=== PATIENT | male | born 1960 | race Caucasian/White ===

== ENCOUNTER 2018-05-29 10:48 | Inpatient (IN) | payer MEDICAID ==
[~2018-05-29] VITALS: Ht 181.6 cm; Wt 131.9 kg
[~2018-05-29 10:48] MED LIST: AMLO5TAB16 PO; DOCU250C4 PO; FLO0.4C PO; LISI40TA4 PO; PANT20TA3 PO
[2018-05-29 11:19] LABS: BASOPHILS # (AUTO) 0.1 X10'3 (0-0.2); BASOPHILS % (AUTO) 0.6 % (0-1); EOSINOPHILS # (AUTO) 0.1 X10'3 (0-0.9); EOSINOPHILS % (AUTO) 0.4 % (0-6); HEMATOCRIT 45.1 % (42.0-52.0); HEMOGLOBIN 15.3 g/dl (14.0-17.9); LYMPHOCYTES # (AUTO) 1.8 X10'3 (1.1-4.8); LYMPHOCYTES % (AUTO) 12.8 % (21-51); MEAN CORPUSCULAR HEMOGLOBIN 33.2 PG (27.0-31.0); MEAN CORPUSCULAR HGB CONC 33.9 g/dL (33.0-36.5); MEAN CORPUSCULAR VOLUME 97.9 FL (78-98); MONOCYTES # (AUTO) 1.6 X10'3 (0-0.9); MONOCYTES % (AUTO) 11.4 % (2-12); NEUTROPHILS # (AUTO) 10.6 X10'3 (1.8-7.7); NEUTROPHILS % (AUTO) 74.8 % (42-75); PLATELET COUNT 346 X10'3 (140-440); RED BLOOD COUNT 4.61 X10'6 (4.70-6.10); RED CELL DISTRIBUTION WIDTH 13.7 % (11.5-14.5); WHITE BLOOD COUNT 14.2 X10'3 (4.5-11.0)
[2018-05-29 11:30] LABS: ALANINE AMINOTRANSFERASE 39 U/L (12-78); ALBUMIN 2.6 G/DL (3.4-5.0); ALBUMIN/GLOBULIN RATIO 0.5 (1.1-1.5); ALKALINE PHOSPHATASE 68 IU/L (46-116); ANION GAP 3 (8-16); ASPARTATE AMINO TRANSFERASE 35 U/L (10-37); BILIRUBIN,TOTAL 0.6 MG/DL (0.1-1.0); BLOOD UREA NITROGEN 13 MG/DL (7-18); CALCIUM 8.7 MG/DL (8.5-10.1); CHLORIDE 101 MMOL/L (99-107); GLUCOSE 117 MG/DL (70-104); LIPASE 153 U/L (73-393); POTASSIUM 3.5 MMOL/L (3.5-5.1); SODIUM 135 MMOL/L (135-145); TOTAL CARBON DIOXIDE 31.5 MMOL/L (24-32); TOTAL PROTEIN 7.7 G/DL (6.4-8.2); eGFR 77 ML/MIN
--- NOTE | 2018-05-29 11:30 | NUR ---
PT BROUGHT BACK TO ROOM 12 FROM THE LOBBY, GENERAL ASSESSMENT DONE AND PT MENTIONED THAT HE HAD BEEN FEELING DIZZY FOR THE PAST DAY OR SO, NO MENTION IF THIS DURING TRIAGE. EKG CALLED FOR AND COMPLETED @1124
[2018-05-29 11:34] LABS: INR 1.1 INR; PROTHROMBIN TIME 10.8 SECONDS (9.0-12.0)
--- NOTE | 2018-05-29 12:01 | NUR ---
IN TO GET UA FROM PT. PT STATES "IT DOES NOT FEEL LIKE THERE IS MUCH IN THERE" EDUCATED PT WE JUST NEED A SML AMT. PT STATES HE STILL CANT GO. WILL CONTINUE TO MONITOR
[2018-05-29 13:27] LABS: CLARITY,URINE SLIGHTLY CLOUDY (Clear); GLUCOSE, URINE NEGATIVE (Neg); KETONES,URINE TRACE mg/dl (Neg); LEUKOCYTE ESTERASE ,URINE NEGATIVE (Neg); NITRITES, URINE NEGATIVE (Neg); OCCULT BLOOD,URINE NEGATIVE (Neg); PH,URINE 6.5 (4.8-8.0); PROTEIN,URINE TRACE mg/dl (Neg); UROBILINOGEN,URINE >=8.0 E.U/dL (0.2-1.0)
[2018-05-29 13:40] LABS: UA COLLECTION TYPE CLN CATCH MIDSTREAM
[2018-05-29] MEDS ORDERED: piperacillin/tazo 3.375gm/50ml 50 ML IV STA (13:41)
[2018-05-29 13:46] LABS: COLOR,URINE DARK YELLOW (Yellow)
[2018-05-29 13:55] LABS: BACTERIA,URINE NONE SEEN /HPF (Neg); HYALINE CASTS 0-3 /LPF (NEGATIVE); MUCUS STRANDS MANY /LPF (Neg); RBC,URINE NONE SEEN /HPF (0-2); SQUAMOUS EPITHELIAL CELL,UR MANY /LPF (FEW); WBC,URINE 0-4 /HPF (0-4)
[2018-05-29] MEDS ORDERED: ketorolac tromethamine 15mg/ml inj. IV ONE (15:10)
[2018-05-29] MEDS ORDERED: ondansetron/PF 4mg/2ml inj IV PRN (15:15)
[2018-05-29] MEDS ORDERED: mag hydrox/Alum hydrox/simeth 30ml oral suspension PO PRN (15:15)
[2018-05-29] MEDS ORDERED: magnesium Cl slow-release 64mg tablet PO PRN (15:15)
[2018-05-29] MEDS ORDERED: magnesium 4gm in 100ml NS 100 ML IV PRN (15:15)
[2018-05-29] MEDS ORDERED: magnesium hydroxide 30ml (MOM) UD suspension PO PRN (15:15)
[2018-05-29] MEDS ORDERED: potassium Cl 20 mEq SR tablet PO PRN ×2 (15:15)
[2018-05-29] MEDS ORDERED: acetaminophen 325mg tablet PO PRN (15:15)
[2018-05-29] MEDS ORDERED: potassium Cl 40MEQ/NS 500ml 500 ML IV PRN ×2 (15:15)
[2018-05-29] MEDS ORDERED: magnesium 2GM in 50ml NS 50 ML IV PRN (15:15)
[2018-05-29] MEDS: piperacillin/tazo 3.375gm/50ml 50 ML IV SCH ×2 (15:28→20:43)
[2018-05-29] MEDS: normal saline 1000ml 1,000 ML IV SCH (15:30)
--- NOTE | 2018-05-29 20:20 | NUR ---
Patient in room ANK[facility] 344. I have received report from ER nurse, Essie and had the opportunity to ask questions and assume patient care.
[2018-05-29 20:25] VITALS: BP 115/66
[2018-05-29] MEDS: docusate sod 250mg capsule PO SCH (20:42)
[2018-05-29] MEDS: morphine 4 MG/ML inj SYRINge IV PRN (20:42)
[2018-05-29] MEDS ORDERED: amLODIPine 5mg tablet PO SCH (21:00)
[2018-05-30] VITALS: BP 97/62
[2018-05-30] MEDS: normal saline 1000ml 1,000 ML IV SCH ×3 (01:13→21:13)
[2018-05-30] MEDS: morphine 4 MG/ML inj SYRINge IV PRN ×3 (01:19→17:59)
[2018-05-30] MEDS: piperacillin/tazo 3.375gm/50ml 50 ML IV SCH ×4 (02:36→19:09)
[2018-05-30 04:38] LABS: BASOPHILS # (AUTO) 0.1 X10'3 (0-0.2); BASOPHILS % (AUTO) 1.1 % (0-1); EOSINOPHILS # (AUTO) 0.1 X10'3 (0-0.9); EOSINOPHILS % (AUTO) 1.4 % (0-6); HEMATOCRIT 39.3 % (42.0-52.0); HEMOGLOBIN 13.5 g/dl (14.0-17.9); LYMPHOCYTES # (AUTO) 1.8 X10'3 (1.1-4.8); LYMPHOCYTES % (AUTO) 21.1 % (21-51); MEAN CORPUSCULAR HEMOGLOBIN 33.8 PG (27.0-31.0); MEAN CORPUSCULAR HGB CONC 34.3 g/dL (33.0-36.5); MEAN CORPUSCULAR VOLUME 98.5 FL (78-98); MONOCYTES % (AUTO) 11.2 % (2-12); NEUTROPHILS # (AUTO) 5.6 X10'3 (1.8-7.7); NEUTROPHILS % (AUTO) 65.2 % (42-75); PLATELET COUNT 284 X10'3 (140-440); RED BLOOD COUNT 3.99 X10'6 (4.70-6.10); RED CELL DISTRIBUTION WIDTH 13.6 % (11.5-14.5); WHITE BLOOD COUNT 8.5 X10'3 (4.5-11.0)
[2018-05-30 04:51] LABS: ALANINE AMINOTRANSFERASE 34 U/L (12-78); ALBUMIN 2.2 G/DL (3.4-5.0); ALBUMIN/GLOBULIN RATIO 0.5 (1.1-1.5); ALKALINE PHOSPHATASE 53 IU/L (46-116); ANION GAP 3 (8-16); ASPARTATE AMINO TRANSFERASE 38 U/L (10-37); BILIRUBIN,TOTAL 0.6 MG/DL (0.1-1.0); BLOOD UREA NITROGEN 13 MG/DL (7-18); BUN/CREATININE RATIO 13.7 (5.4-32.0); CALCIUM 8.1 MG/DL (8.5-10.1); CHLORIDE 104 MMOL/L (99-107); CREATININE 0.95 MG/DL (0.60-1.10); GLUCOSE 91 MG/DL (70-104); MAGNESIUM 1.8 MG/DL (1.5-2.4); POTASSIUM 3.6 MMOL/L (3.5-5.1); SODIUM 139 MMOL/L (135-145); TOTAL CARBON DIOXIDE 31.8 MMOL/L (24-32); TOTAL PROTEIN 6.5 G/DL (6.4-8.2); eGFR 82 ML/MIN
--- NOTE | 2018-05-30 06:47 | NUR ---
Patient in room ANKITA 344. I have received report from BENTLEY Dinero and had the opportunity to ask questions and assume patient care.
[2018-05-30 08:00] VITALS: BP 130/79
[2018-05-30] MEDS: K and/or MAG REPLACEMENT MC SCH (08:00)
[2018-05-30] MEDS ORDERED: non-formulary drug (Pantoprazole Sodium (Protonix) 1 TAB) PO SCH (08:00)
[2018-05-30] MEDS ORDERED: lisinopril 20mg tablet PO SCH (08:00)
[2018-05-30] MEDS ORDERED: non-formulary drug (Lisinopril* 1 TABLET) PO SCH (08:00)
[2018-05-30] MEDS: tamsulosin 0.4mg capsule PO SCH (08:37)
[2018-05-30] MEDS: amLODIPine 5mg tablet PO SCH (08:37)
[2018-05-30] MEDS: docusate sod 250mg capsule PO SCH ×2 (08:37→19:09)
[2018-05-30] MEDS: pantoprazole 40mg Tablet.DR PO SCH (08:38)
[2018-05-30 11:00] VITALS: BP 112/63
[2018-05-30 18:00] VITALS: BP 131/62
--- NOTE | 2018-05-30 18:41 | NUR ---
Problems reprioritized. Patient report given, questions answered & plan of care reviewed with BENTLEY Mason.
--- NOTE | 2018-05-30 18:42 | NUR ---
Patient in room ANKITA 344. I have received report from Skylar jara and had the opportunity to ask questions and assume patient care.
[2018-05-31] VITALS: BP 132/91
[2018-05-31] MEDS: morphine 4 MG/ML inj SYRINge IV PRN ×2 (00:33→08:48)
[2018-05-31] MEDS: piperacillin/tazo 3.375gm/50ml 50 ML IV SCH ×4 (02:01→19:06)
[2018-05-31 05:09] LABS: BASOPHILS # (AUTO) 0.1 X10'3 (0-0.2); BASOPHILS % (AUTO) 1.2 % (0-1); EOSINOPHILS # (AUTO) 0.1 X10'3 (0-0.9); EOSINOPHILS % (AUTO) 1.5 % (0-6); HEMATOCRIT 38.7 % (42.0-52.0); HEMOGLOBIN 13.2 g/dl (14.0-17.9); LYMPHOCYTES # (AUTO) 1.8 X10'3 (1.1-4.8); LYMPHOCYTES % (AUTO) 22.6 % (21-51); MEAN CORPUSCULAR HEMOGLOBIN 33.5 PG (27.0-31.0); MEAN CORPUSCULAR HGB CONC 34.2 g/dL (33.0-36.5); MEAN CORPUSCULAR VOLUME 97.9 FL (78-98); MEAN PLATELET VOLUME 8.3 FL (7.4-10.4); MONOCYTES # (AUTO) 0.7 X10'3 (0-0.9); MONOCYTES % (AUTO) 8.4 % (2-12); NEUTROPHILS # (AUTO) 5.2 X10'3 (1.8-7.7); NEUTROPHILS % (AUTO) 66.3 % (42-75); PLATELET COUNT 287 X10'3 (140-440); RED BLOOD COUNT 3.95 X10'6 (4.70-6.10); RED CELL DISTRIBUTION WIDTH 13.7 % (11.5-14.5); WHITE BLOOD COUNT 7.9 X10'3 (4.5-11.0)
[2018-05-31 05:29] LABS: ALANINE AMINOTRANSFERASE 39 U/L (12-78); ALBUMIN 2.2 G/DL (3.4-5.0); ALBUMIN/GLOBULIN RATIO 0.5 (1.1-1.5); ALKALINE PHOSPHATASE 50 IU/L (46-116); ANION GAP 10 (8-16); ASPARTATE AMINO TRANSFERASE 37 U/L (10-37); BILIRUBIN,TOTAL 0.6 MG/DL (0.1-1.0); BLOOD UREA NITROGEN 8 MG/DL (7-18); BUN/CREATININE RATIO 9.5 (5.4-32.0); CALCIUM 7.9 MG/DL (8.5-10.1); CHLORIDE 103 MMOL/L (99-107); CREATININE 0.84 MG/DL (0.60-1.10); GLUCOSE 98 MG/DL (70-104); MAGNESIUM 1.7 MG/DL (1.5-2.4); POTASSIUM 3.6 MMOL/L (3.5-5.1); SODIUM 139 MMOL/L (135-145); TOTAL PROTEIN 6.4 G/DL (6.4-8.2); eGFR > 90 ML/MIN
--- NOTE | 2018-05-31 06:30 | NUR ---
Problems reprioritized. Patient report given, questions answered & plan of care reviewed with BENTLEY Lees.
--- NOTE | 2018-05-31 06:39 | NUR ---
Patient in room ANKITA 344. I have received report from BENTLEY Mason and had the opportunity to ask questions and assume patient care.
[2018-05-31 08:00] VITALS: BP 110/66
[2018-05-31] MEDS: K and/or MAG REPLACEMENT MC SCH (08:00)
[2018-05-31] MEDS: docusate sod 250mg capsule PO SCH ×2 (08:38→19:05)
[2018-05-31] MEDS: tamsulosin 0.4mg capsule PO SCH (08:38)
[2018-05-31] MEDS: amLODIPine 5mg tablet PO SCH (08:39)
[2018-05-31] MEDS: pantoprazole 40mg Tablet.DR PO SCH (08:39)
[2018-05-31 12:00] VITALS: BP 119/80
[2018-05-31] MEDS: HYDROcodone/acetaminophen 10/325mg tab PO PRN ×2 (15:14→23:00)
[2018-05-31] MEDS: normal saline 1000ml 1,000 ML IV SCH ×2 (15:15→19:06)
[2018-05-31 18:00] VITALS: BP 127/74
--- NOTE | 2018-05-31 18:33 | NUR ---
Problems reprioritized. Patient report given, questions answered & plan of care reviewed with BENTLEY Mason.
--- NOTE | 2018-05-31 18:34 | NUR ---
Patient in room ANKITA 344. I have received report from Skylar Lees and had the opportunity to ask questions and assume patient care.
[2018-06-01] VITALS: BP 124/76
[2018-06-01] MEDS: piperacillin/tazo 3.375gm/50ml 50 ML IV SCH ×2 (01:48→08:12)
[2018-06-01] MEDS: normal saline 1000ml 1,000 ML IV SCH ×2 (03:13→09:40)
--- NOTE | 2018-06-01 06:31 | NUR ---
Problems reprioritized. Patient report given, questions answered & plan of care reviewed with BENTLEY Lees.
--- NOTE | 2018-06-01 06:33 | NUR ---
Patient in room ANKITA 344. I have received report from BENTLEY Mason and had the opportunity to ask questions and assume patient care.
[2018-06-01 08:00] VITALS: BP 117/60
[2018-06-01] MEDS: K and/or MAG REPLACEMENT MC SCH (08:00)
[2018-06-01] MEDS: pantoprazole 40mg Tablet.DR PO SCH (08:12)
[2018-06-01] MEDS: amLODIPine 5mg tablet PO SCH (08:12)
[2018-06-01] MEDS: docusate sod 250mg capsule PO SCH (08:12)
[2018-06-01] MEDS: tamsulosin 0.4mg capsule PO SCH (08:12)
[2018-06-01] MEDS: HYDROcodone/acetaminophen 10/325mg tab PO PRN (08:19)
[2018-06-01 08:31] LABS: BASOPHILS # (AUTO) 0.1 X10'3 (0-0.2); EOSINOPHILS # (AUTO) 0.1 X10'3 (0-0.9); EOSINOPHILS % (AUTO) 1.5 % (0-6); HEMATOCRIT 40.4 % (42.0-52.0); HEMOGLOBIN 13.6 g/dl (14.0-17.9); LYMPHOCYTES # (AUTO) 1.6 X10'3 (1.1-4.8); LYMPHOCYTES % (AUTO) 20.8 % (21-51); MEAN CORPUSCULAR HEMOGLOBIN 33.2 PG (27.0-31.0); MEAN CORPUSCULAR HGB CONC 33.8 g/dL (33.0-36.5); MEAN CORPUSCULAR VOLUME 98.2 FL (78-98); MEAN PLATELET VOLUME 8.7 FL (7.4-10.4); MONOCYTES # (AUTO) 0.7 X10'3 (0-0.9); MONOCYTES % (AUTO) 9.2 % (2-12); NEUTROPHILS % (AUTO) 67.5 % (42-75); PLATELET COUNT 292 X10'3 (140-440); RED BLOOD COUNT 4.11 X10'6 (4.70-6.10); RED CELL DISTRIBUTION WIDTH 13.2 % (11.5-14.5); WHITE BLOOD COUNT 7.5 X10'3 (4.5-11.0)
[2018-06-01 08:40] LABS: ALANINE AMINOTRANSFERASE 36 U/L (12-78); ALBUMIN 2.4 G/DL (3.4-5.0); ALBUMIN/GLOBULIN RATIO 0.6 (1.1-1.5); ALKALINE PHOSPHATASE 51 IU/L (46-116); ANION GAP 7 (8-16); ASPARTATE AMINO TRANSFERASE 36 U/L (10-37); BILIRUBIN,TOTAL 0.5 MG/DL (0.1-1.0); BLOOD UREA NITROGEN 6 MG/DL (7-18); BUN/CREATININE RATIO 6.4 (5.4-32.0); CALCIUM 8.3 MG/DL (8.5-10.1); CHLORIDE 105 MMOL/L (99-107); CREATININE 0.94 MG/DL (0.60-1.10); GLUCOSE 96 MG/DL (70-104); MAGNESIUM 1.8 MG/DL (1.5-2.4); POTASSIUM 3.7 MMOL/L (3.5-5.1); SODIUM 140 MMOL/L (135-145); TOTAL CARBON DIOXIDE 28.2 MMOL/L (24-32); TOTAL PROTEIN 6.7 G/DL (6.4-8.2); eGFR 83 ML/MIN
[2018-06-01] MEDS ORDERED: METR-159 PO (12:06)
[2018-06-01] MEDS ORDERED: TRAM50TA2 PO (12:06)
[2018-06-01] MEDS ORDERED: LEVO750T21 PO (12:06)
--- NOTE | 2018-06-01 13:44 | NUR ---
Pt discharged to home with all belongings, in private vehicle. Discharge instructions and medications reviewed, new prescriptions called to [facility] on [address]. IV DC'd, cannula intact. Pt instructed to follow up with PCP in 1-2 weeks. Pt escorted to front lobby by PCT.
== END 2018-06-01 13:41 | disposition home or self-care (01) | DRG 720 ==
LOC: ER 10:48 → ED HOLD 15:13 → SUR 3N 20:15
PROVIDERS: ADMIT Internal Medicine; ATTEND Family Medicine
DX: A41.9 Sepsis, unspecified organism (principal); K57.80 Diverticulitis of intestine, part unspecified, with perforation and abscess without bleeding; G89.29 Other chronic pain; M54.9 Dorsalgia, unspecified; E66.9 Obesity, unspecified; F12.90 Cannabis use, unspecified, uncomplicated; I10 Essential (primary) hypertension; Z82.3 Family history of stroke; Z82.49 Family history of ischemic heart disease and other diseases of the circulatory system; Z68.41 Body mass index [BMI] 40.0-44.9, adult; Z71.3 Dietary counseling and surveillance
CPT/HCPCS: 36415; 74176; 80053; 81001; 83605; 83690; 83735; 85025; 85610; 87040; 87070; 93005; 96365; 96375; 99285; G0378; J1885; J2270; J2543; J7030

== ENCOUNTER 2018-06-16 19:26 | Inpatient (IN) | payer MEDICAID ==
[~2018-06-16] VITALS: Ht 180.3 cm; Wt 128.0 kg
[~2018-06-16 19:26] MED LIST changes: +METR-159 PO; +TRAM50TA2 PO
[2018-06-16 20:10] LABS: EOSINOPHILS # (AUTO) 0.1 X10'3 (0-0.9); LYMPHOCYTES # (AUTO) 2.5 X10'3 (1.1-4.8); MONOCYTES # (AUTO) 1.1 X10'3 (0-0.9)
[2018-06-16 20:11] LABS: BASOPHILS # (AUTO) 0.1 X10'3 (0-0.2); BASOPHILS % (AUTO) 1.3 % (0-1); HEMATOCRIT 47.9 % (42.0-52.0); HEMOGLOBIN 16.7 g/dl (14.0-17.9); LYMPHOCYTES % (AUTO) 22.9 % (21-51); MEAN CORPUSCULAR HEMOGLOBIN 33.6 PG (27.0-31.0); MEAN CORPUSCULAR HGB CONC 34.7 g/dL (33.0-36.5); MEAN CORPUSCULAR VOLUME 96.7 FL (78-98); MEAN PLATELET VOLUME 8.2 FL (7.4-10.4); MONOCYTES % (AUTO) 9.8 % (2-12); PLATELET COUNT 358 X10'3 (140-440); RED BLOOD COUNT 4.96 X10'6 (4.70-6.10); RED CELL DISTRIBUTION WIDTH 14.4 % (11.5-14.5); WHITE BLOOD COUNT 10.8 X10'3 (4.5-11.0)
[2018-06-16 20:20] LABS: ALANINE AMINOTRANSFERASE 30 U/L (12-78); ALBUMIN 3.1 G/DL (3.4-5.0); ALBUMIN/GLOBULIN RATIO 0.7 (1.1-1.5); ALKALINE PHOSPHATASE 79 IU/L (46-116); ANION GAP 9 (8-16); ASPARTATE AMINO TRANSFERASE 28 U/L (10-37); BILIRUBIN,TOTAL 0.5 MG/DL (0.1-1.0); BLOOD UREA NITROGEN 18 MG/DL (7-18); BUN/CREATININE RATIO 13.5 (5.4-32.0); CALCIUM 8.9 MG/DL (8.5-10.1); CHLORIDE 100 MMOL/L (99-107); CREATININE 1.33 MG/DL (0.60-1.10); GLUCOSE 182 MG/DL (70-104); POTASSIUM 3.9 MMOL/L (3.5-5.1); SODIUM 137 MMOL/L (135-145); TOTAL CARBON DIOXIDE 27.9 MMOL/L (24-32); TOTAL PROTEIN 7.6 G/DL (6.4-8.2); eGFR 56 ML/MIN
--- NOTE | 2018-06-16 21:45 | NUR ---
PT UNABLE TO VOID FOR UA AT THIS TIME.
[2018-06-16] MEDS ORDERED: normal saline 1000ML IV soln IV ONE (21:50)
[2018-06-16] MEDS: piperacillin/tazo 4.5gm/100ml 100 ML IV SCH (22:00)
[2018-06-16] MEDS ORDERED: morphine 4 MG/ML inj SYRINge IV ONE (22:35)
[2018-06-16 22:37] LABS: CLARITY,URINE CLEAR (Clear); COLOR,URINE YELLOW (Yellow); GLUCOSE, URINE NEGATIVE (Neg); KETONES,URINE NEGATIVE (Neg); LEUKOCYTE ESTERASE ,URINE NEGATIVE (Neg); NITRITES, URINE NEGATIVE (Neg); OCCULT BLOOD,URINE NEGATIVE (Neg); PROTEIN,URINE NEGATIVE (Neg)
[2018-06-16] MEDS ORDERED: DOCU-28 PO (22:43)
[2018-06-16] MEDS ORDERED: OMEP40CA37 PO (22:43)
[2018-06-16 22:44] LABS: UA COLLECTION TYPE CLN CATCH MIDSTREAM
[2018-06-16] MEDS ORDERED: morphine 10mg/ml inj. IV ONE (22:45)
[2018-06-16] MEDS: normal saline 1000ml 1,000 ML IV SCH (23:01)
[2018-06-16] MEDS ORDERED: HYDROcodone/acetaminophen 5mg/325mg tablet PO PRN (23:05)
[2018-06-16] MEDS ORDERED: acetaminophen 325mg tablet PO PRN ×2 (23:05)
[2018-06-16] MEDS ORDERED: magnesium 4gm in 100ml NS 100 ML IV PRN (23:05)
[2018-06-16] MEDS ORDERED: potassium Cl 20 mEq SR tablet PO PRN ×2 (23:05)
[2018-06-16] MEDS ORDERED: magnesium Cl slow-release 64mg tablet PO PRN (23:05)
[2018-06-16] MEDS ORDERED: ondansetron/PF 4mg/2ml inj IV PRN (23:05)
[2018-06-16] MEDS ORDERED: mag hydrox/Alum hydrox/simeth 30ml oral suspension PO PRN (23:05)
[2018-06-16] MEDS ORDERED: morphine 4 MG/ML inj SYRINge IV PRN ×2 (23:05)
[2018-06-16] MEDS ORDERED: potassium Cl 40MEQ/NS 500ml 500 ML IV PRN ×2 (23:05)
[2018-06-16] MEDS ORDERED: magnesium 2GM in 50ml NS 50 ML IV PRN (23:05)
[2018-06-17 00:30] VITALS: BP 146/95
--- NOTE | 2018-06-17 05:13 | NUR ---
RC'D VERBAL REPORT AT 0000 FROM IAN IN ED. PATIENT ARRIVED ON 4TH FLOOR VIA W/C AT 0030 AND AMBULATED INTO BATHROOM TO VOID VIA URINAL THEN TO BED. PIV INTACT AND PATENT, ZOSYN INFUSING AT TIME OF ADMIT. MEDICATED IN ED WITH MORPHINE AND PAIN LEVEL 6/10 AT THIS TIME. MEDICAL HX INFO RECALLED FROM MEDICAL RECORD PATIENT WAS HERE 2 WKS AGO. POSITIONS SELF AD RONALD, CALL LIGHT IN REACH
[2018-06-17 06:34] LABS: EOSINOPHILS # (AUTO) 0.1 X10'3 (0-0.9); HEMOGLOBIN 13.9 g/dl (14.0-17.9); MEAN PLATELET VOLUME 8.2 FL (7.4-10.4)
[2018-06-17 06:35] LABS: BASOPHILS # (AUTO) 0.1 X10'3 (0-0.2); BASOPHILS % (AUTO) 1.4 % (0-1); EOSINOPHILS % (AUTO) 1.6 % (0-6); LYMPHOCYTES # (AUTO) 2.6 X10'3 (1.1-4.8); LYMPHOCYTES % (AUTO) 31.3 % (21-51); MEAN CORPUSCULAR HEMOGLOBIN 32.9 PG (27.0-31.0); MEAN CORPUSCULAR VOLUME 96.6 FL (78-98); NEUTROPHILS # (AUTO) 4.5 X10'3 (1.8-7.7); NEUTROPHILS % (AUTO) 53.7 % (42-75); PLATELET COUNT 243 X10'3 (140-440); RED BLOOD COUNT 4.24 X10'6 (4.70-6.10); WHITE BLOOD COUNT 8.3 X10'3 (4.5-11.0)
[2018-06-17 06:39] LABS: ALBUMIN 2.4 G/DL (3.4-5.0); ANION GAP 7 (8-16); BLOOD UREA NITROGEN 14 MG/DL (7-18); BUN/CREATININE RATIO 15.1 (5.4-32.0); CALCIUM 7.9 MG/DL (8.5-10.1); CHLORIDE 108 MMOL/L (99-107); CREATININE 0.93 MG/DL (0.60-1.10); GLUCOSE 108 MG/DL (70-104); MAGNESIUM 1.7 MG/DL (1.5-2.4); SODIUM 140 MMOL/L (135-145); TOTAL CARBON DIOXIDE 24.7 MMOL/L (24-32); eGFR 84 ML/MIN
--- NOTE | 2018-06-17 06:41 | NUR ---
Problems reprioritized. Patient report given, questions answered & plan of care reviewed with Viviana HAGAN.
[2018-06-17 07:08] VITALS: BP 126/76
[2018-06-17] MEDS: piperacillin/tazo 4.5gm/100ml 100 ML IV SCH ×4 (07:29→22:58)
[2018-06-17] MEDS: tamsulosin 0.4mg capsule PO SCH (07:29)
[2018-06-17] MEDS: pantoprazole 40mg Tablet.DR PO SCH (07:29)
[2018-06-17] MEDS: K and/or MAG REPLACEMENT MC SCH (07:35)
[2018-06-17] MEDS: HYDROcodone/acetaminophen 10/325mg tab PO PRN ×3 (08:11→19:31)
[2018-06-17] MEDS: normal saline 1000ml 1,000 ML IV SCH (09:01)
[2018-06-17 10:00] VITALS: BP 105/62
[2018-06-17] MEDS: dextrose 5%-normal saline 1,000 ML IV SCH ×2 (15:51→22:59)
[2018-06-17 18:00] VITALS: BP 130/86
--- NOTE | 2018-06-17 18:53 | NUR ---
RECEIVED REPORT FROM JJ HAGAN AND ASSUMED PATIENT CARE
[2018-06-17] MEDS: lactobacillus rhamnosus 10,000 MMU CELLS/CAPSULE PO SCH (20:35)
[2018-06-17] MEDS: amLODIPine 5mg tablet PO SCH (20:35)
[2018-06-17 22:00] VITALS: BP 104/66
[2018-06-18] MEDS: HYDROcodone/acetaminophen 10/325mg tab PO PRN ×5 (00:41→20:30)
--- NOTE | 2018-06-18 06:22 | NUR ---
REPORT GIVEN TO JJ HAGAN
[2018-06-18 06:52] LABS: BASOPHILS % (AUTO) 0.2 % (0-1); EOSINOPHILS # (AUTO) 0.2 X10'3 (0-0.9); EOSINOPHILS % (AUTO) 2.2 % (0-6); HEMATOCRIT 39.1 % (42.0-52.0); HEMOGLOBIN 13.4 g/dl (14.0-17.9); LYMPHOCYTES # (AUTO) 2.3 X10'3 (1.1-4.8); LYMPHOCYTES % (AUTO) 33.3 % (21-51); MEAN CORPUSCULAR HEMOGLOBIN 33.1 PG (27.0-31.0); MEAN CORPUSCULAR HGB CONC 34.3 g/dL (33.0-36.5); MEAN CORPUSCULAR VOLUME 96.7 FL (78-98); MEAN PLATELET VOLUME 8.3 FL (7.4-10.4); MONOCYTES # (AUTO) 0.7 X10'3 (0-0.9); NEUTROPHILS # (AUTO) 3.6 X10'3 (1.8-7.7); NEUTROPHILS % (AUTO) 53.3 % (42-75); PLATELET COUNT 229 X10'3 (140-440); RED BLOOD COUNT 4.05 X10'6 (4.70-6.10); RED CELL DISTRIBUTION WIDTH 14.1 % (11.5-14.5); WHITE BLOOD COUNT 6.8 X10'3 (4.5-11.0)
[2018-06-18 06:56] LABS: ALBUMIN 2.5 G/DL (3.4-5.0); ANION GAP 5 (8-16); BLOOD UREA NITROGEN 8 MG/DL (7-18); BUN/CREATININE RATIO 8.2 (5.4-32.0); CALCIUM 8.3 MG/DL (8.5-10.1); CHLORIDE 107 MMOL/L (99-107); CREATININE 0.97 MG/DL (0.60-1.10); GLUCOSE 115 MG/DL (70-104); MAGNESIUM 1.7 MG/DL (1.5-2.4); POTASSIUM 3.9 MMOL/L (3.5-5.1); SODIUM 140 MMOL/L (135-145); TOTAL CARBON DIOXIDE 27.6 MMOL/L (24-32); eGFR 80 ML/MIN
[2018-06-18 07:01] VITALS: BP 97/65
[2018-06-18] MEDS: K and/or MAG REPLACEMENT MC SCH (07:34)
[2018-06-18] MEDS: piperacillin/tazo 4.5gm/100ml 100 ML IV SCH (07:34)
[2018-06-18] MEDS: tamsulosin 0.4mg capsule PO SCH (07:34)
[2018-06-18] MEDS: pantoprazole 40mg Tablet.DR PO SCH (07:34)
[2018-06-18] MEDS: lactobacillus rhamnosus 10,000 MMU CELLS/CAPSULE PO SCH ×2 (07:34→20:24)
[2018-06-18] MEDS: magnesium hydroxide 30ml (MOM) UD suspension PO PRN (09:24)
[2018-06-18] MEDS: dextrose 5%-normal saline 1,000 ML IV SCH (10:58)
[2018-06-18 11:14] VITALS: BP 133/94
[2018-06-18] MEDS: metroNIDAZOLE-Flagyl 500mg/NS 100 ML IV SCH (15:54)
[2018-06-18] MEDS: levoFLOXACIN-Levaquin 500mg/D5 100 ML IV SCH (15:55)
[2018-06-18] MEDS: NORMAL SALINE IV SCH (16:54)
[2018-06-18] MEDS: POTASSIUM CL IV SCH (16:54)
[2018-06-18] MEDS: DEXTROSE 5% IV SCH (16:54)
[2018-06-18 17:00] VITALS: BP 144/94
--- NOTE | 2018-06-18 18:34 | NUR ---
RECEIVED REPORT FROM JJ HAGAN AND ASSUMED PATIENT CARE
[2018-06-18] MEDS: heparin, porcine 5000 units/ml vial SQ SCH (20:24)
[2018-06-18] MEDS: amLODIPine 5mg tablet PO SCH (20:24)
[2018-06-18] MEDS: diatr meglu/diatrizoate 30ml oral sol.-(3 dose) bottle PO SCH (20:24)
[2018-06-18 22:00] VITALS: BP 145/97
[2018-06-19] MEDS: POTASSIUM CL IV SCH ×2 (00:07→10:50)
[2018-06-19] MEDS: metroNIDAZOLE-Flagyl 500mg/NS 100 ML IV SCH ×2 (00:07→07:37)
[2018-06-19] MEDS: DEXTROSE 5% IV SCH ×2 (00:07→10:50)
[2018-06-19] MEDS: NORMAL SALINE IV SCH ×2 (00:07→10:50)
[2018-06-19 06:00] VITALS: BP 126/83
--- NOTE | 2018-06-19 06:21 | NUR ---
REPORT GIVEN TO MARTHA HAGAN
--- NOTE | 2018-06-19 06:30 | NUR ---
Patient in room ORTHO 4013. I have received report from Eliana HAGAN and had the opportunity to ask questions and assume patient care.
[2018-06-19 06:38] LABS: ALBUMIN 2.8 G/DL (3.4-5.0); ANION GAP 6 (8-16); BLOOD UREA NITROGEN 6 MG/DL (7-18); BUN/CREATININE RATIO 6.3 (5.4-32.0); CALCIUM 8.5 MG/DL (8.5-10.1); CHLORIDE 105 MMOL/L (99-107); CREATININE 0.96 MG/DL (0.60-1.10); GLUCOSE 111 MG/DL (70-104); MAGNESIUM 1.7 MG/DL (1.5-2.4); POTASSIUM 3.9 MMOL/L (3.5-5.1); SODIUM 141 MMOL/L (135-145); TOTAL CARBON DIOXIDE 29.9 MMOL/L (24-32); eGFR 81 ML/MIN
[2018-06-19] MEDS: diatr meglu/diatrizoate 30ml oral sol.-(3 dose) bottle PO SCH ×2 (07:19→09:54)
[2018-06-19] MEDS: HYDROcodone/acetaminophen 10/325mg tab PO PRN ×2 (07:24→14:12)
[2018-06-19] MEDS: K and/or MAG REPLACEMENT MC SCH (08:00)
[2018-06-19] MEDS ORDERED: iohexol 300mg/ml 100ml inj. ONE (10:04)
[2018-06-19] MEDS: tamsulosin 0.4mg capsule PO SCH (11:07)
[2018-06-19] MEDS: lactobacillus rhamnosus 10,000 MMU CELLS/CAPSULE PO SCH (11:07)
[2018-06-19] MEDS: pantoprazole 40mg Tablet.DR PO SCH (11:07)
[2018-06-19] MEDS: heparin, porcine 5000 units/ml vial SQ SCH (11:08)
--- NOTE | 2018-06-19 11:32 | NUR ---
Student documentation: I have reviewed all interventions, assessments performed and documented by Eliana Muñiz. Student Medication Administration: For this medication-pass time frame, all medication were reviewed, dispensed, administered and documented per hospital policy by [facility].
--- NOTE | 2018-06-19 14:01 | NUR ---
PAGER ID: [phone] MESSAGE: Kaitlin ling ortho, # [phone], Mr. Jalloh in [id number] is anxious about results of CT and plan of care. please advise
[2018-06-19] MEDS ORDERED: bisacodyl 10mg suppository rectal RC STA (14:11)
--- NOTE | 2018-06-19 14:50 | NUR ---
PAGER ID: [phone] MESSAGE: Kaitlin on ortho, #[phone], Mr. Jalloh in rm 4013A, was able to have a BM, no suppository needed, pt requesting MOM, please advise, thank you
--- NOTE | 2018-06-19 14:54 | NUR ---
Discharge orders received, pt unable to obtain a ride home until 1900. Spoke with charge to arrange cab ride home. Called [facility] at 16:30, meds delivered bedside at 17:15. Cab called at 17:20. Pt was wheeled downstairs to be taken home at 17:40. Pt is alert and oriented. Reviewed discharge instructions with pt and follow up. Provided MD's office number and a soft foods diet educational packet. Pt verbalized understanding.
[2018-06-19] MEDS: levoFLOXACIN-Levaquin 500mg/D5 100 ML IV SCH (15:00)
[2018-06-19] MEDS ORDERED: METR-159 PO (15:01)
[2018-06-19] MEDS ORDERED: LEVO500T2 PO (15:01)
[2018-06-19] MEDS ORDERED: HYDR-3972 PO (15:16)
[2018-06-19] MEDS ORDERED: DOCU-28 PO (15:16)
--- NOTE | 2018-06-19 15:53 | NUR ---
Discharge orders from MD. Howe unable to obtain ride until 19:00
[2018-06-19] MEDS: magnesium hydroxide 30ml (MOM) UD suspension PO PRN (15:54)
== END 2018-06-19 17:40 | disposition home or self-care (01) | DRG 244 ==
LOC: ER 19:27 → ED HOLD 23:01 → EDBEDREQ 06-17 00:17 → ORTHO 4S 06-17 00:30
PROVIDERS: ADMIT Hospitalist; ATTEND Internal Medicine
PROC: BW211ZZ Computerized Tomography (CT Scan) of Abdomen and Pelvis using Low Osmolar Contrast (ICD-10-PCS; principal; 2018-06-19)
DX: K57.80 Diverticulitis of intestine, part unspecified, with perforation and abscess without bleeding (principal); N17.9 Acute kidney failure, unspecified; E86.0 Dehydration; F12.90 Cannabis use, unspecified, uncomplicated; I10 Essential (primary) hypertension; K59.00 Constipation, unspecified; G89.29 Other chronic pain; M54.9 Dorsalgia, unspecified; N40.0 Benign prostatic hyperplasia without lower urinary tract symptoms; Z80.9 Family history of malignant neoplasm, unspecified; Z82.3 Family history of stroke; Z82.49 Family history of ischemic heart disease and other diseases of the circulatory system; Z79.899 Other long term (current) drug therapy
CPT/HCPCS: 36415; 74176; 74177; 80048; 80053; 81003; 83605; 83735; 85025; 85610; 87040; 87070; 96374; 99285; G0378; J1644; J1956; J2270; J2543; J3480; J3490; J7030; J7042; Q9963; Q9967

== ENCOUNTER 2018-12-20 18:10 | Inpatient (IN) | payer MEDICAID ==
[2018-12-20] VITALS (9 sets, daily range): BP systolic 109–146; BP diastolic 52–89
[~2018-12-20] VITALS: Ht 180.3 cm; Wt 132.3 kg
[~2018-12-20 18:10] MED LIST changes: +DOCU-28 PO; -DOCU250C4 PO; +HYDR-3972 PO; -LISI40TA4 PO; -METR-159 PO; -TRAM50TA2 PO
--- NOTE | 2018-12-20 18:30 | NUR ---
PATIENT HAS PACER PADS ON AT THIS TIME, MONITORING AT THIS TIME
--- NOTE | 2018-12-20 18:36 | NUR ---
DR MERLOS AT BEDSIDE WITH PT
[2018-12-20 18:52] LABS: BASOPHILS # (AUTO) 0.1 X10'3 (0-0.2); BASOPHILS % (AUTO) 0.7 % (0-1); EOSINOPHILS % (AUTO) 0.3 % (0-6); HEMATOCRIT 41.4 % (42.0-52.0); HEMOGLOBIN 14.3 g/dl (14.0-17.9); LYMPHOCYTES # (AUTO) 1.1 X10'3 (1.1-4.8); LYMPHOCYTES % (AUTO) 9.7 % (21-51); MEAN CORPUSCULAR HEMOGLOBIN 34.6 PG (27.0-31.0); MEAN CORPUSCULAR HGB CONC 34.6 g/dL (33.0-36.5); MEAN CORPUSCULAR VOLUME 100.1 FL (78-98); MEAN PLATELET VOLUME 10.2 FL (7.4-10.4); MONOCYTES # (AUTO) 0.8 X10'3 (0-0.9); MONOCYTES % (AUTO) 7.1 % (2-12); NEUTROPHILS # (AUTO) 9.7 X10'3 (1.8-7.7); NEUTROPHILS % (AUTO) 82.2 % (42-75); PLATELET COUNT 189 X10'3 (140-440); RED BLOOD COUNT 4.13 X10'6 (4.70-6.10); RED CELL DISTRIBUTION WIDTH 13.3 % (11.5-14.5); WHITE BLOOD COUNT 11.8 X10'3 (4.5-11.0)
[2018-12-20 19:06] LABS: PARTIAL THROMBOPLASTIN TIME 26 SECONDS (22-32)
[2018-12-20 19:08] LABS: ALANINE AMINOTRANSFERASE 38 U/L (12-78); ALBUMIN 3.3 G/DL (3.4-5.0); ALBUMIN/GLOBULIN RATIO 0.8 (1.1-1.5); ALKALINE PHOSPHATASE 57 IU/L (46-116); ANION GAP 10 (8-16); ASPARTATE AMINO TRANSFERASE 16 U/L (10-37); BILIRUBIN,TOTAL 0.9 MG/DL (0.1-1.0); BLOOD UREA NITROGEN 14 MG/DL (7-18); BUN/CREATININE RATIO 13.9 (5.4-32.0); CALCIUM 8.5 MG/DL (8.5-10.1); CHLORIDE 102 MMOL/L (99-107); CREATININE 1.01 MG/DL (0.60-1.10); GLUCOSE 135 MG/DL (70-104); MAGNESIUM 2.1 MG/DL (1.5-2.4); PHOSPHORUS 2.7 MG/DL (2.3-4.5); POTASSIUM 3.8 MMOL/L (3.5-5.1); SODIUM 139 MMOL/L (135-145); TOTAL CARBON DIOXIDE 27.2 MMOL/L (24-32); TOTAL PROTEIN 7.4 G/DL (6.4-8.2); eGFR 76 ML/MIN
[2018-12-20] MEDS ORDERED: LISI40TA4 PO (19:26)
--- NOTE | 2018-12-20 19:28 | NUR ---
DR IVY AT BEDSIDE
[2018-12-20] MEDS ORDERED: LIDOcaine 1% 30ml preserv. free vial ONE (20:19)
[2018-12-20] MEDS ORDERED: ceFAZolin 1000mg inj ONE (20:19)
[2018-12-20] MEDS ORDERED: mag hydrox/Alum hydrox/simeth 30ml oral suspension PO PRN (20:20)
[2018-12-20] MEDS ORDERED: acetaminophen 325mg tablet PO PRN (20:20)
[2018-12-20] MEDS ORDERED: morphine 2 MG/ML inj. syringe IV PRN (20:20)
[2018-12-20] MEDS ORDERED: ondansetron/PF 4mg/2ml inj IV PRN ×3 (20:20→22:20)
[2018-12-20] MEDS ORDERED: magnesium hydroxide 30ml (MOM) UD suspension PO PRN (20:20)
[2018-12-20] MEDS ORDERED: fentaNYL/PF 50MCG/1 ML 2ML syringe ONE (20:53)
[2018-12-20] MEDS ORDERED: MIDAZolam 5mg/5ml vial ONE (20:53)
[2018-12-20] MEDS ORDERED: amLODIPine 5mg tablet PO SCH (21:00)
[2018-12-20] MEDS ORDERED: LIDOcaine 2% (20mg/ml) 5ml vial ONE (22:08)
[2018-12-20] MEDS ORDERED: propofol inj 20 ML IV ONE (22:08)
[2018-12-20 22:09] LABS: CLARITY,URINE CLEAR (Clear); COLOR,URINE YELLOW (Yellow); GLUCOSE, URINE NEGATIVE (Neg); KETONES,URINE 15 mg/dl (Neg); LEUKOCYTE ESTERASE ,URINE NEGATIVE (Neg); NITRITES, URINE NEGATIVE (Neg); OCCULT BLOOD,URINE NEGATIVE (Neg); PROTEIN,URINE TRACE mg/dl (Neg)
--- NOTE | 2018-12-20 22:09 | NUR ---
Received from OR via SURGICAL BED , accompanied by Anesthesiologist BHARATH and report given by Anesthesiolgist. VSS. DENIES PAIN. LEFT ANTERIOR CHEST DRESSING/OP SITE IS CDI AT THIS TIME. Addendum: 12/20/18 at 2221 by Gael Oliva RN, RN Amended: Links added.
[2018-12-20 22:12] LABS: UA COLLECTION TYPE NON-SPECIFIED
[2018-12-20 22:14] LABS: BACTERIA,URINE NONE SEEN /HPF (Neg); RBC,URINE NONE SEEN /HPF (0-2); SQUAMOUS EPITHELIAL CELL,UR FEW /LPF (FEW); WBC,URINE 0-4 /HPF (0-4)
[2018-12-20] MEDS ORDERED: HYDROcodone/acetaminophen 10/325mg tab PO PRN (22:15)
[2018-12-20] MEDS ORDERED: ringers solution, lacted 1,000 ML IV SCH (22:20)
[2018-12-20] MEDS ORDERED: morphine 4 MG/ML inj SYRINge IV PRN ×2 (22:20)
[2018-12-20] MEDS ORDERED: proCHLORperazine 10 MG/2 ml inj IV PRN (22:20)
[2018-12-20] MEDS ORDERED: meperidine/PF 25mg/ml syringe IV PRN ×2 (22:20)
[2018-12-20] MEDS ORDERED: meperidine/PF 25mg/ml syringe ONE (22:21)
[2018-12-20] MEDS: meperidine/PF 25mg/ml syringe IV PRN ×2 (22:24→22:38)
--- NOTE | 2018-12-20 22:30 | NUR ---
Patient in room PCU 3023. I have received report from Gael HAGAN, RR and had the opportunity to ask questions and assume patient care.
--- NOTE | 2018-12-20 22:49 | NUR ---
ALL CRITERIA FOR TRANSFER TO THE FLOOR HAS BEEN ACHIEVED. VSS. BED LOW, CALL LIGHT AND VS. SET IN PLACE. RN PRESENT TO ACCEPT CARE. PATIENT RESTING COMFORTABLY IN BED. BELONGINGS SENT WITH PATIENT. DRESSINGS CDI. BENTLEY GILLETTE PRESENT TO ACCEPT PATIENT. NO BELONGINGS WITH PATIENT. HOWEVER FAMILY MAY HAVE BELONGINGS. Addendum: 12/20/18 at 2300 by Gael Garcia - BENTLEY HAGAN Amended: Links added.
--- NOTE | 2018-12-20 22:50 | NUR ---
Pt received from RR via hospital bed in no acute distress. Pt oriented to room, bed, and surroundings. POC discussed w/Pt and family who are at the bedside. Telemetry placed, VSS, O2/NC at 3L/min. Full IV bag to L chest surgical wound to provide pressure. Tegaderm over site providing easy observation of wound status, CDI. NS infusing to R arm IV site as ordered. Sling to L arm in place. Elbow elevated f/comfort.
--- NOTE | 2018-12-20 23:00 | NUR ---
Problems reprioritized. Patient report given, questions answered & plan of care reviewed with Frances HAGAN.
[2018-12-20] MEDS: morphine 2 MG/ML inj. syringe IV PRN (23:41)
[2018-12-20] MEDS: normal saline 1000ml 1,000 ML IV SCH (23:43)
[2018-12-20] MEDS: ceFAZolin 1GM/D5W- ADD-VANTAGE 50 ML IV SCH (23:45)
[2018-12-21] VITALS (7 sets, daily range): BP systolic 114–136; BP diastolic 66–78
[2018-12-21] MEDS ORDERED: ceFAZolin 1GM/D5W- ADD-VANTAGE 50 ML IV SCH ×2
--- NOTE | 2018-12-21 04:17 | NUR ---
Patient in room PCU 3023. I have received report from BENTLEY Del Valle and had the opportunity to ask questions and assume patient care.
[2018-12-21 05:44] LABS: BASOPHILS # (AUTO) 0.1 X10'3 (0-0.2); BASOPHILS % (AUTO) 0.5 % (0-1); EOSINOPHILS % (AUTO) 0.1 % (0-6); HEMATOCRIT 37.8 % (42.0-52.0); HEMOGLOBIN 13.3 g/dl (14.0-17.9); LYMPHOCYTES # (AUTO) 1.7 X10'3 (1.1-4.8); LYMPHOCYTES % (AUTO) 15.8 % (21-51); MEAN CORPUSCULAR HGB CONC 35.2 g/dL (33.0-36.5); MEAN CORPUSCULAR VOLUME 99.4 FL (78-98); MEAN PLATELET VOLUME 9.8 FL (7.4-10.4); MONOCYTES % (AUTO) 9.4 % (2-12); NEUTROPHILS % (AUTO) 74.2 % (42-75); PLATELET COUNT 179 X10'3 (140-440); RED CELL DISTRIBUTION WIDTH 13.6 % (11.5-14.5); WHITE BLOOD COUNT 10.9 X10'3 (4.5-11.0)
--- NOTE | 2018-12-21 05:52 | NUR ---
[place]rientee documentation: I have reviewed all interventions, assessments performed and documented by Sheba HAGAN. [place] Medication Administration: For this medication-pass time frame, all medication were reviewed, dispensed, administered and documented per hospital policy by Sheba HAGAN.
[2018-12-21 06:03] LABS: ALANINE AMINOTRANSFERASE 29 U/L (12-78); ALBUMIN 2.9 G/DL (3.4-5.0); ALBUMIN/GLOBULIN RATIO 0.8 (1.1-1.5); ALKALINE PHOSPHATASE 52 IU/L (46-116); ANION GAP 8 (8-16); ASPARTATE AMINO TRANSFERASE 14 U/L (10-37); BILIRUBIN,TOTAL 0.7 MG/DL (0.1-1.0); BLOOD UREA NITROGEN 13 MG/DL (7-18); BUN/CREATININE RATIO 15.1 (5.4-32.0); CALCIUM 7.7 MG/DL (8.5-10.1); CHLORIDE 104 MMOL/L (99-107); CREATININE 0.86 MG/DL (0.60-1.10); GLUCOSE 114 MG/DL (70-104); POTASSIUM 3.9 MMOL/L (3.5-5.1); SODIUM 140 MMOL/L (135-145); TOTAL CARBON DIOXIDE 27.7 MMOL/L (24-32); TOTAL PROTEIN 6.7 G/DL (6.4-8.2); eGFR > 90 ML/MIN
[2018-12-21] MEDS: normal saline 1000ml 1,000 ML IV SCH (06:16)
--- NOTE | 2018-12-21 06:16 | NUR ---
Problems reprioritized. Patient report given, questions answered & plan of care reviewed with Sorin HAGAN.
--- NOTE | 2018-12-21 06:16 | NUR ---
Patient in room PCU 3023. I have received report from BENTLEY Daniels and had the opportunity to ask questions and assume patient care.
--- NOTE | 2018-12-21 06:24 | NUR ---
Problems reprioritized. Patient report given, questions answered & plan of care reviewed with BENTLEY Rowell.
[2018-12-21] MEDS ORDERED: pantoprazole 40mg Tablet.DR PO SCH (08:00)
[2018-12-21] MEDS ORDERED: tamsulosin 0.4mg capsule PO SCH (08:00)
[2018-12-21] MEDS ORDERED: lisinopril 20mg tablet PO SCH (08:00)
[2018-12-21] MEDS ORDERED: docusate sod 100mg capsule PO SCH (08:00)
[2018-12-21] MEDS: ceFAZolin 1GM/D5W- ADD-VANTAGE 50 ML IV SCH (08:25)
[2018-12-21] MEDS: morphine 2 MG/ML inj. syringe IV PRN (08:35)
[2018-12-21] MEDS ORDERED: pneumococcal 23-VAL P-sac vacc 25 mcg/0.5ml vial IMVAC ONE (10:00)
[2018-12-21] MEDS ORDERED: FLU VACC QS2019-20 36MOS UP/PF 60 MCG/0.5 ML SYRINGE IMVAC ONE (10:00)
[2018-12-21] MEDS ORDERED: HYDR-4353 PO (10:48)
--- NOTE | 2018-12-21 11:34 | NUR ---
PAGER ID: [phone] MESSAGE: [phone] Abhi Jalloh: [facility]? BENTLEY Rowell ext [phone]
--- NOTE | 2018-12-21 15:00 | NUR ---
Discharged per MD. MARTI and tele DC'd. Educated on meds, follow-up and pacemaker care.
== END 2018-12-21 14:05 | disposition home or self-care (01) | DRG 171 ==
LOC: ER 18:11 → PCU 3S 20:59
PROVIDERS: ADMIT Internal Medicine; ATTEND Family Medicine
PROC: 02H63JZ Insertion of Pacemaker Lead into Right Atrium, Percutaneous Approach (ICD-10-PCS; 2018-12-20)
PROC: 02HK3JZ Insertion of Pacemaker Lead into Right Ventricle, Percutaneous Approach (ICD-10-PCS; 2018-12-20)
PROC: 0JH606Z Insertion of Pacemaker, Dual Chamber into Chest Subcutaneous Tissue and Fascia, Open Approach (ICD-10-PCS; principal; 2018-12-20 20:55)
PROC: 3E02340 Introduction of Influenza Vaccine into Muscle, Percutaneous Approach (ICD-10-PCS; 2018-12-21)
PROC: 3E0234Z Introduction of Serum, Toxoid and Vaccine into Muscle, Percutaneous Approach (ICD-10-PCS; 2018-12-21)
DX: I44.2 Atrioventricular block, complete (principal); I11.0 Hypertensive heart disease with heart failure; I50.9 Heart failure, unspecified; E66.01 Morbid (severe) obesity due to excess calories; F12.90 Cannabis use, unspecified, uncomplicated; G89.4 Chronic pain syndrome; J93.9 Pneumothorax, unspecified; K21.9 Gastro-esophageal reflux disease without esophagitis; K52.9 Noninfective gastroenteritis and colitis, unspecified; M54.9 Dorsalgia, unspecified; K57.90 Diverticulosis of intestine, part unspecified, without perforation or abscess without bleeding; R00.1 Bradycardia, unspecified; N40.0 Benign prostatic hyperplasia without lower urinary tract symptoms; Z82.3 Family history of stroke; I25.2 Old myocardial infarction; Z82.49 Family history of ischemic heart disease and other diseases of the circulatory system; Z68.41 Body mass index [BMI] 40.0-44.9, adult; Z23 Encounter for immunization; Z88.8 Allergy status to other drugs, medicaments and biological substances
CPT/HCPCS: 36415; 71045; 76000; 80053; 81001; 83735; 83880; 84100; 84439; 84443; 84480; 84484; 85025; 85610; 85730; 86885; 86900; 86901; 87081; 93005; 93306; 99291; A4215; A4565; A6258; A6402; A7000; C1785; G0378; J0690; J2001; J2175; J2250; J2270; J2704; J3010; J7030; J7060; J7120; Q2037

== ENCOUNTER 2018-12-23 10:47 | Inpatient (IN) | payer MEDICAID ==
[~2018-12-23] VITALS: Ht 180.3 cm; Wt 135.0 kg
[~2018-12-23 10:47] MED LIST changes: -HYDR-3972 PO; +HYDR-4353 PO; +LISI40TA4 PO
--- NOTE | 2018-12-23 11:15 | NUR ---
LAB AT BEDSIDE PER ORDERS NOW
--- NOTE | 2018-12-23 11:27 | NUR ---
ITZEL INFORMED OF PT PAIN AND NAUSEA, NO MED ORDERS AT THIS TIME, WAITING FOR CT TEST AND RESULTS.
[2018-12-23] MEDS ORDERED: iohexol 300mg/ml 100ml inj. ONE (11:28)
[2018-12-23 11:37] LABS: BASOPHILS # (AUTO) 0.1 X10'3 (0-0.2); BASOPHILS % (AUTO) 0.7 % (0-1); EOSINOPHILS % (AUTO) 0.2 % (0-6); HEMATOCRIT 43.9 % (42.0-52.0); HEMOGLOBIN 15.3 g/dl (14.0-17.9); LYMPHOCYTES # (AUTO) 1.2 X10'3 (1.1-4.8); LYMPHOCYTES % (AUTO) 8.6 % (21-51); MEAN CORPUSCULAR HEMOGLOBIN 34.1 PG (27.0-31.0); MEAN CORPUSCULAR HGB CONC 34.9 g/dL (33.0-36.5); MEAN CORPUSCULAR VOLUME 97.6 FL (78-98); MEAN PLATELET VOLUME 8.8 FL (7.4-10.4); MONOCYTES # (AUTO) 1.2 X10'3 (0-0.9); MONOCYTES % (AUTO) 8.4 % (2-12); NEUTROPHILS # (AUTO) 11.6 X10'3 (1.8-7.7); NEUTROPHILS % (AUTO) 82.1 % (42-75); PLATELET COUNT 259 X10'3 (140-440); RED CELL DISTRIBUTION WIDTH 13.3 % (11.5-14.5); WHITE BLOOD COUNT 14.1 X10'3 (4.5-11.0)
--- NOTE | 2018-12-23 11:50 | NUR ---
BACK FROM CT INFORMED PA ITZEL
[2018-12-23 11:53] LABS: ALANINE AMINOTRANSFERASE 25 U/L (12-78); ALBUMIN/GLOBULIN RATIO 0.7 (1.1-1.5); ALKALINE PHOSPHATASE 56 IU/L (46-116); ANION GAP 6 (8-16); ASPARTATE AMINO TRANSFERASE 18 U/L (10-37); BILIRUBIN,TOTAL 0.9 MG/DL (0.1-1.0); BLOOD UREA NITROGEN 17 MG/DL (7-18); BUN/CREATININE RATIO 19.1 (5.4-32.0); CALCIUM 8.7 MG/DL (8.5-10.1); CHLORIDE 99 MMOL/L (99-107); CREATININE 0.89 MG/DL (0.60-1.10); GLUCOSE 126 MG/DL (70-104); SODIUM 138 MMOL/L (135-145); TOTAL CARBON DIOXIDE 32.6 MMOL/L (24-32); TOTAL PROTEIN 7.5 G/DL (6.4-8.2); eGFR 88 ML/MIN
[2018-12-23] MEDS ORDERED: morphine 2 MG/ML inj. syringe IV PRN (13:00)
[2018-12-23] MEDS ORDERED: magnesium hydroxide 30ml (MOM) UD suspension PO PRN (13:00)
[2018-12-23] MEDS ORDERED: ondansetron/PF 4mg/2ml inj IV PRN (13:00)
[2018-12-23] MEDS ORDERED: mag hydrox/Alum hydrox/simeth 30ml oral suspension PO PRN (13:00)
[2018-12-23] MEDS ORDERED: acetaminophen 325mg tablet PO PRN (13:00)
[2018-12-23] MEDS ORDERED: DOCU-20 PO (13:02)
[2018-12-23] MEDS ORDERED: piperacillin/tazo 3.375gm/50ml 50 ML IV ONE (13:25)
[2018-12-23] MEDS: normal saline 1000ml 1,000 ML IV SCH (13:31)
[2018-12-23] MEDS: morphine 2 MG/ML inj. syringe IV PRN ×2 (13:39→19:49)
--- NOTE | 2018-12-23 13:46 | NUR ---
DR KRAFT AT BEDSIDE FOR EVALUATION NOW
--- NOTE | 2018-12-23 13:51 | NUR ---
PT WAS NOT GETTING ANY OUTPUT FROM NG TUBE PLACED BY PURA HAGAN, ADVANCED NG TUBE AND GETTING GREEN/BROWN LIQUID OUTPUT 500 ML ON LOW CONTINUOUS SUCTION FOR A FEW MINUTES CHANGED TO LOW INTERMITTENT SUCTION PER DR KRAFT AFTER INITIAL OUTPUT.
--- NOTE | 2018-12-23 13:58 | NUR ---
DR SCHWARTZ AT BEDSIDE FOR EVALUATION FOR ADMISSION NOW
--- NOTE | 2018-12-23 14:30 | NUR ---
Received report from Jerrod HAGAN. Patient will be admitted to room 3023A.
--- NOTE | 2018-12-23 14:57 | NUR ---
Patient admitted to room 3023A. Patient hooked up to NS @ 100/hr per MD order, tele monitor applied, and NG hooked up to low intermittent. 2 RN skin check done. Oriented to room. VS: BP 145/84, HR 76, temp 98.9, RR 18, 0/10 pain. Will continue to monitor
[2018-12-23 15:00] VITALS: BP 145/84
[2018-12-23] MEDS ORDERED: BENZ0.5T43 PO (16:03)
[2018-12-23] MEDS: piperacillin/tazo 3.375gm/50ml 50 ML IV SCH (16:37)
--- NOTE | 2018-12-23 18:43 | NUR ---
Patient in room PCU 3023. I have received report from BENTLEY Chen and had the opportunity to ask questions and assume patient care.
--- NOTE | 2018-12-23 18:44 | NUR ---
Problems reprioritized. Patient report given, questions answered & plan of care reviewed with Raven HAGAN. Patient stable at shift of change
[2018-12-23 19:00] VITALS: BP 154/83
[2018-12-23] MEDS: docusate sod 100mg capsule PO SCH (19:48)
[2018-12-23] MEDS: amLODIPine 5mg tablet PO SCH (20:55)
[2018-12-23 21:01] VITALS: BP 137/84
[2018-12-23 23:00] VITALS: BP 130/68
[2018-12-24 02:00] VITALS: BP 121/70
[2018-12-24] MEDS: piperacillin/tazo 3.375gm/50ml 50 ML IV SCH ×4 (02:17→23:49)
[2018-12-24] MEDS: normal saline 1000ml 1,000 ML IV SCH ×3 (02:20→23:48)
--- NOTE | 2018-12-24 05:52 | NUR ---
pT HAS HAD 2 LIQUID STOOLS, BROWN IN COLOR. At 0530 patient had large liquid stool with small fragments of formed stool.
[2018-12-24 06:28] LABS: BASOPHILS # (AUTO) 0.1 X10'3 (0-0.2); BASOPHILS % (AUTO) 0.7 % (0-1); EOSINOPHILS # (AUTO) 0.1 X10'3 (0-0.9); EOSINOPHILS % (AUTO) 0.5 % (0-6); HEMATOCRIT 45.9 % (42.0-52.0); MEAN CORPUSCULAR HEMOGLOBIN 34.5 PG (27.0-31.0); MEAN CORPUSCULAR HGB CONC 34.9 g/dL (33.0-36.5); MEAN CORPUSCULAR VOLUME 98.9 FL (78-98); MEAN PLATELET VOLUME 8.9 FL (7.4-10.4); MONOCYTES # (AUTO) 1.4 X10'3 (0-0.9); MONOCYTES % (AUTO) 9.6 % (2-12); NEUTROPHILS # (AUTO) 10.8 X10'3 (1.8-7.7); NEUTROPHILS % (AUTO) 75.2 % (42-75); PLATELET COUNT 277 X10'3 (140-440); RED BLOOD COUNT 4.65 X10'6 (4.70-6.10); RED CELL DISTRIBUTION WIDTH 13.3 % (11.5-14.5); WHITE BLOOD COUNT 14.4 X10'3 (4.5-11.0)
[2018-12-24 06:30] VITALS: BP 135/77
--- NOTE | 2018-12-24 06:33 | NUR ---
Patient in room PCU 3023A. I have received report from Raven HAGAN and had the opportunity to ask questions and assume patient care.
--- NOTE | 2018-12-24 06:35 | NUR ---
Problems reprioritized. Patient report given, questions answered & plan of care reviewed with BENTLEY Chen .
[2018-12-24 06:38] LABS: ALBUMIN 3.3 G/DL (3.4-5.0); ANION GAP 13 (8-16); BLOOD UREA NITROGEN 17 MG/DL (7-18); BUN/CREATININE RATIO 14.9 (5.4-32.0); CALCIUM 9.1 MG/DL (8.5-10.1); CHLORIDE 98 MMOL/L (99-107); CREATININE 1.14 MG/DL (0.60-1.10); GLUCOSE 136 MG/DL (70-104); SODIUM 137 MMOL/L (135-145); TOTAL CARBON DIOXIDE 26.3 MMOL/L (24-32); eGFR 66 ML/MIN
[2018-12-24] MEDS: pantoprazole 40mg Tablet.DR PO SCH (07:28)
[2018-12-24] MEDS: docusate sod 100mg capsule PO SCH ×2 (07:28→20:02)
[2018-12-24] MEDS: tamsulosin 0.4mg capsule PO SCH (07:28)
[2018-12-24] MEDS: morphine 2 MG/ML inj. syringe IV PRN ×3 (07:29→20:08)
[2018-12-24] MEDS: lisinopril 20mg tablet PO SCH (07:29)
--- NOTE | 2018-12-24 08:00 | NUR ---
Paged Dr Coreas to ask if he wanted new NG placed, and gave update on bowel movements PAGER ID: [phone] MESSAGE: April lux [phone]. Leonides Montano 3023A. FYI followup from prior page, patient has had 2 large bowel movements, with consistency of both liquid and formed stool
[2018-12-24 11:00] VITALS: BP 108/81
[2018-12-24 18:00] VITALS: BP 156/81
--- NOTE | 2018-12-24 18:32 | NUR ---
Problems reprioritized. Patient report given, questions answered & plan of care reviewed with Raven HAGAN.
--- NOTE | 2018-12-24 19:21 | NUR ---
Patient in room PCU 3023. I have received report from BENTLEY Chen and had the opportunity to ask questions and assume patient care.
[2018-12-24 20:00] VITALS: BP 122/72
[2018-12-24] MEDS: lactobacillus rhamnosus 10,000 MMU CELLS/CAPSULE PO SCH (20:02)
[2018-12-24] MEDS: amLODIPine 5mg tablet PO SCH (20:02)
[2018-12-24 22:00] VITALS: BP 130/76
[2018-12-25 02:00] VITALS: BP 94/61
[2018-12-25] MEDS: normal saline 1000ml 1,000 ML IV SCH ×3 (04:59→23:21)
[2018-12-25 05:47] LABS: BASOPHILS % (AUTO) 0.4 % (0-1); EOSINOPHILS # (AUTO) 0.1 X10'3 (0-0.9); EOSINOPHILS % (AUTO) 0.9 % (0-6); HEMATOCRIT 43.3 % (42.0-52.0); HEMOGLOBIN 14.8 g/dl (14.0-17.9); LYMPHOCYTES % (AUTO) 22.6 % (21-51); MEAN CORPUSCULAR HEMOGLOBIN 34.4 PG (27.0-31.0); MEAN CORPUSCULAR HGB CONC 34.2 g/dL (33.0-36.5); MEAN CORPUSCULAR VOLUME 100.5 FL (78-98); MEAN PLATELET VOLUME 8.4 FL (7.4-10.4); MONOCYTES # (AUTO) 0.9 X10'3 (0-0.9); MONOCYTES % (AUTO) 9.7 % (2-12); NEUTROPHILS # (AUTO) 5.8 X10'3 (1.8-7.7); NEUTROPHILS % (AUTO) 66.4 % (42-75); PLATELET COUNT 227 X10'3 (140-440); RED BLOOD COUNT 4.31 X10'6 (4.70-6.10); RED CELL DISTRIBUTION WIDTH 13.4 % (11.5-14.5); WHITE BLOOD COUNT 8.8 X10'3 (4.5-11.0)
[2018-12-25 05:56] LABS: ANION GAP 8 (8-16); BLOOD UREA NITROGEN 12 MG/DL (7-18); BUN/CREATININE RATIO 10.5 (5.4-32.0); CHLORIDE 103 MMOL/L (99-107); CREATININE 1.14 MG/DL (0.60-1.10); GLUCOSE 97 MG/DL (70-104); POTASSIUM 3.4 MMOL/L (3.5-5.1); SODIUM 141 MMOL/L (135-145); TOTAL CARBON DIOXIDE 29.9 MMOL/L (24-32); eGFR 66 ML/MIN
--- NOTE | 2018-12-25 06:06 | NUR ---
Problems reprioritized. Patient report given, questions answered & plan of care reviewed with BENTLEY Lucero.
[2018-12-25 07:00] VITALS: BP 141/69
[2018-12-25] MEDS: pantoprazole 40mg Tablet.DR PO SCH (08:51)
[2018-12-25] MEDS: tamsulosin 0.4mg capsule PO SCH (08:52)
[2018-12-25] MEDS: piperacillin/tazo 3.375gm/50ml 50 ML IV SCH ×3 (08:52→23:36)
[2018-12-25] MEDS: lisinopril 20mg tablet PO SCH (08:52)
[2018-12-25] MEDS: lactobacillus rhamnosus 10,000 MMU CELLS/CAPSULE PO SCH ×2 (08:52→20:56)
[2018-12-25] MEDS: docusate sod 100mg capsule PO SCH ×2 (08:52→20:56)
--- NOTE | 2018-12-25 10:31 | NUR ---
Paged Dr. Coreas PAGER ID: [phone] MESSAGE: [phone] Yeimi. Patient would like [place] instead of Morphine for pain. Jazmine [phone]
[2018-12-25 11:00] VITALS: BP 143/86
[2018-12-25 15:00] VITALS: BP 121/68
--- NOTE | 2018-12-25 16:55 | NUR ---
PAGER ID: [phone] MESSAGE: Yeimi Leonardo. Patient would like to have a [place] instead of morphine. Please advise. Jazmine [phone]
--- NOTE | 2018-12-25 18:38 | NUR ---
Problems reprioritized. Patient report given, questions answered & plan of care reviewed with Yunior HAGAN.
--- NOTE | 2018-12-25 18:40 | NUR ---
Patient in room PCU 3023. I have received report from Jazmine HAGAN and Sully HAGAN and had the opportunity to ask questions and assume patient care.
--- NOTE | 2018-12-25 18:43 | NUR ---
Patient in room PCU 3023. I have received report from Jazmine HAGAN/Sully HAGAN and had the opportunity to ask questions and assume patient care.
[2018-12-25] MEDS: morphine 2 MG/ML inj. syringe IV PRN (18:53)
--- NOTE | 2018-12-25 19:11 | NUR ---
Page Sent to PAGER ID: [phone] MESSAGE: pt Abhi Jalloh in 23A is here for a large bowel obstruction potassium is at 3.4 not on protocol. May we start? Cachorro [phone]
[2018-12-25] MEDS ORDERED: potassium Cl 20 mEq SR tablet PO PRN (20:30)
[2018-12-25] MEDS ORDERED: potassium CL 10mEq/100ml bag 100 ML IV PRN (20:30)
[2018-12-25] MEDS ORDERED: magnesium Cl slow-release 64mg tablet PO PRN (20:30)
[2018-12-25] MEDS ORDERED: magnesium 4gm in 100ml NS 100 ML IV PRN (20:30)
[2018-12-25] MEDS: amLODIPine 5mg tablet PO SCH (20:56)
[2018-12-25 22:00] VITALS: BP 136/82
[2018-12-25] MEDS: potassium Cl 20 mEq SR tablet PO PRN (22:03)
[2018-12-26 02:00] VITALS: BP 132/78
[2018-12-26] MEDS: potassium Cl 20 mEq SR tablet PO PRN (02:12)
[2018-12-26] MEDS: HYDROcodone/acetaminophen 5mg/325mg tablet PO PRN ×2 (02:17→08:28)
[2018-12-26 06:00] VITALS: BP 128/79
[2018-12-26 06:00] LABS: BASOPHILS # (AUTO) 0.1 X10'3 (0-0.2); BASOPHILS % (AUTO) 0.6 % (0-1); EOSINOPHILS # (AUTO) 0.1 X10'3 (0-0.9); EOSINOPHILS % (AUTO) 1.3 % (0-6); HEMATOCRIT 40.7 % (42.0-52.0); HEMOGLOBIN 14.1 g/dl (14.0-17.9); LYMPHOCYTES # (AUTO) 1.8 X10'3 (1.1-4.8); LYMPHOCYTES % (AUTO) 21.6 % (21-51); MEAN CORPUSCULAR HEMOGLOBIN 34.3 PG (27.0-31.0); MEAN CORPUSCULAR HGB CONC 34.6 g/dL (33.0-36.5); MEAN PLATELET VOLUME 8.4 FL (7.4-10.4); MONOCYTES # (AUTO) 0.9 X10'3 (0-0.9); NEUTROPHILS # (AUTO) 5.4 X10'3 (1.8-7.7); NEUTROPHILS % (AUTO) 65.5 % (42-75); PLATELET COUNT 217 X10'3 (140-440); RED BLOOD COUNT 4.11 X10'6 (4.70-6.10); RED CELL DISTRIBUTION WIDTH 13.1 % (11.5-14.5); WHITE BLOOD COUNT 8.2 X10'3 (4.5-11.0)
--- NOTE | 2018-12-26 06:06 | NUR ---
Problems reprioritized. Patient report given, questions answered & plan of care reviewed with Zane HAGAN.
[2018-12-26 06:44] LABS: ALBUMIN 2.8 G/DL (3.4-5.0); ANION GAP 9 (8-16); BLOOD UREA NITROGEN 6 MG/DL (7-18); BUN/CREATININE RATIO 6.1 (5.4-32.0); CALCIUM 8.4 MG/DL (8.5-10.1); CHLORIDE 106 MMOL/L (99-107); CREATININE 0.99 MG/DL (0.60-1.10); GLUCOSE 103 MG/DL (70-104); SODIUM 142 MMOL/L (135-145); TOTAL CARBON DIOXIDE 26.7 MMOL/L (24-32); eGFR 78 ML/MIN
--- NOTE | 2018-12-26 06:50 | NUR ---
Patient in room PCU 3023. I have received report from Nelson HAGAN and had the opportunity to ask questions and assume patient care.
[2018-12-26] MEDS: piperacillin/tazo 3.375gm/50ml 50 ML IV SCH (07:16)
[2018-12-26] MEDS: tamsulosin 0.4mg capsule PO SCH (07:19)
[2018-12-26] MEDS: lactobacillus rhamnosus 10,000 MMU CELLS/CAPSULE PO SCH (07:19)
[2018-12-26] MEDS: docusate sod 100mg capsule PO SCH (07:19)
[2018-12-26] MEDS: pantoprazole 40mg Tablet.DR PO SCH (07:19)
[2018-12-26] MEDS: lisinopril 20mg tablet PO SCH (07:20)
[2018-12-26 11:00] VITALS: BP 129/71
[2018-12-26] MEDS ORDERED: METR-159 PO (11:10)
[2018-12-26] MEDS ORDERED: LEVO750T21 PO (11:10)
--- NOTE | 2018-12-26 13:28 | NUR ---
Patient is stable for discharge per md order, VSS, discharge instructions reviewed w/ patient and all questions answered, new medication prescription called in to [facility] per pt preference, tele monitor 47 removed and returned, PIV dc'ed and clean dy dressing in place, [facility], pt discharged w/ daughter in private vehicle at 1245, all belongings w/ pt at time of discharge.
== END 2018-12-26 13:18 | disposition home or self-care (01) | DRG 244 ==
LOC: ER 10:47 → ED HOLD 13:39 → PCU 3S 14:57
PROVIDERS: ADMIT Family Medicine; ATTEND Family Medicine
PROC: 0D9670Z Drainage of Stomach with Drainage Device, Via Natural or Artificial Opening (ICD-10-PCS; principal; 2018-12-23)
PROC: BW211ZZ Computerized Tomography (CT Scan) of Abdomen and Pelvis using Low Osmolar Contrast (ICD-10-PCS; 2018-12-23)
DX: K57.20 Diverticulitis of large intestine with perforation and abscess without bleeding (principal); K56.690 Other partial intestinal obstruction; I10 Essential (primary) hypertension; K21.9 Gastro-esophageal reflux disease without esophagitis; F12.90 Cannabis use, unspecified, uncomplicated; G89.29 Other chronic pain; E66.01 Morbid (severe) obesity due to excess calories; M54.9 Dorsalgia, unspecified; N40.0 Benign prostatic hyperplasia without lower urinary tract symptoms; Z82.3 Family history of stroke; Z82.49 Family history of ischemic heart disease and other diseases of the circulatory system; Z95.0 Presence of cardiac pacemaker; Z88.8 Allergy status to other drugs, medicaments and biological substances; Z68.41 Body mass index [BMI] 40.0-44.9, adult
CPT/HCPCS: 36415; 74177; 80048; 80053; 85025; 87081; 96374; 96375; 99285; G0378; J2270; J2405; J2543; J7030; Q9967

== ENCOUNTER 2019-01-09 14:51 | Emergency (ER) | payer MEDICAID ==
[~2019-01-09] VITALS: Ht 180.3 cm; Wt 126.0 kg
[~2019-01-09 14:51] MED LIST changes: +BENZ0.5T43 PO; +DOCU-20 PO; -DOCU-28 PO; -HYDR-4353 PO; +METR-159 PO
[2019-01-09 15:41] LABS: MEAN CORPUSCULAR HEMOGLOBIN 33.9 PG (27.0-31.0); MEAN CORPUSCULAR HGB CONC 34.9 g/dL (33.0-36.5); MONOCYTES # (AUTO) 0.9 X10'3 (0-0.9); MONOCYTES % (AUTO) 7.7 % (2-12); NEUTROPHILS % (AUTO) 70.6 % (42-75)
[2019-01-09 15:43] LABS: BASOPHILS # (AUTO) 0.1 X10'3 (0-0.2); BASOPHILS % (AUTO) 0.7 % (0-1); EOSINOPHILS % (AUTO) 0.3 % (0-6); HEMATOCRIT 43.2 % (42.0-52.0); HEMOGLOBIN 15.1 g/dl (14.0-17.9); LYMPHOCYTES # (AUTO) 2.4 X10'3 (1.1-4.8); LYMPHOCYTES % (AUTO) 20.7 % (21-51); MEAN PLATELET VOLUME 8.4 FL (7.4-10.4); NEUTROPHILS # (AUTO) 8.2 X10'3 (1.8-7.7); PLATELET COUNT 207 X10'3 (140-440); RED BLOOD COUNT 4.45 X10'6 (4.70-6.10); RED CELL DISTRIBUTION WIDTH 14.2 % (11.5-14.5); WHITE BLOOD COUNT 11.6 X10'3 (4.5-11.0)
[2019-01-09 15:52] LABS: PARTIAL THROMBOPLASTIN TIME 25 SECONDS (22-32)
[2019-01-09 16:04] LABS: ALANINE AMINOTRANSFERASE 33 U/L (12-78); ALBUMIN 3.1 G/DL (3.4-5.0); ALBUMIN/GLOBULIN RATIO 0.8 (1.1-1.5); ALKALINE PHOSPHATASE 67 IU/L (46-116); ANION GAP 7 (8-16); ASPARTATE AMINO TRANSFERASE 25 U/L (10-37); BILIRUBIN,TOTAL 0.3 MG/DL (0.1-1.0); BLOOD UREA NITROGEN 18 MG/DL (7-18); BUN/CREATININE RATIO 18.9 (5.4-32.0); CALCIUM 8.2 MG/DL (8.5-10.1); CHLORIDE 104 MMOL/L (99-107); CREATININE 0.95 MG/DL (0.60-1.10); GLUCOSE 156 MG/DL (70-104); POTASSIUM 3.7 MMOL/L (3.5-5.1); SODIUM 138 MMOL/L (135-145); TOTAL CARBON DIOXIDE 26.7 MMOL/L (24-32); eGFR 82 ML/MIN
[2019-01-09 18:34] LABS: GIANT PLATELET FEW; LARGE PLATELETS MODERATE; PLATELET ESTIMATE NORMAL
[2019-01-09 19:09] VITALS: BP 127/84
== END 2019-01-09 19:11 | disposition home or self-care (01) ==
LOC: ER 14:52
DX: R07.89 Other chest pain (principal); I10 Essential (primary) hypertension; G89.29 Other chronic pain; F12.90 Cannabis use, unspecified, uncomplicated; Z98.890 Other specified postprocedural states; Z56.0 Unemployment, unspecified; Z88.8 Allergy status to other drugs, medicaments and biological substances; Z79.899 Other long term (current) drug therapy
CPT/HCPCS: 36415; 71045; 80053; 84484; 85025; 85610; 85730; 93005; 99284

== ENCOUNTER 2019-02-23 11:55 | Emergency (ER) | payer MEDICAID ==
[~2019-02-23] VITALS: Ht 180.3 cm; Wt 150.0 kg
[~2019-02-23 11:55] MED LIST changes: -METR-159 PO
[2019-02-23] MEDS ORDERED: normal saline 1000ML IV soln IVB ONE (12:10)
[2019-02-23] MEDS ORDERED: magnesium citrate 296ml oral solution PO ONE (12:10)
[2019-02-23 12:29] LABS: BASOPHILS # (AUTO) 0.1 X10'3 (0-0.2); LYMPHOCYTES # (AUTO) 1.7 X10'3 (1.1-4.8); LYMPHOCYTES % (AUTO) 20.7 % (21-51); MONOCYTES # (AUTO) 0.6 X10'3 (0-0.9); NEUTROPHILS # (AUTO) 5.7 X10'3 (1.8-7.7)
[2019-02-23 12:30] LABS: EOSINOPHILS % (AUTO) 0.2 % (0-6); HEMATOCRIT 46.8 % (42.0-52.0); HEMOGLOBIN 16.4 g/dl (14.0-17.9); MEAN CORPUSCULAR HEMOGLOBIN 34.2 PG (27.0-31.0); MEAN CORPUSCULAR VOLUME 97.7 FL (78-98); MEAN PLATELET VOLUME 8.2 FL (7.4-10.4); MONOCYTES % (AUTO) 7.1 % (2-12); PLATELET COUNT 253 X10'3 (140-440); RED BLOOD COUNT 4.79 X10'6 (4.70-6.10); RED CELL DISTRIBUTION WIDTH 14.2 % (11.5-14.5)
[2019-02-23 12:41] LABS: ALANINE AMINOTRANSFERASE 54 U/L (12-78); ALBUMIN 3.7 G/DL (3.4-5.0); ALBUMIN/GLOBULIN RATIO 0.9 (1.1-1.5); ALKALINE PHOSPHATASE 57 IU/L (46-116); ANION GAP 9 (8-16); ASPARTATE AMINO TRANSFERASE 40 U/L (10-37); BILIRUBIN,TOTAL 0.6 MG/DL (0.1-1.0); BLOOD UREA NITROGEN 11 MG/DL (7-18); BUN/CREATININE RATIO 11.5 (5.4-32.0); CALCIUM 8.8 MG/DL (8.5-10.1); CHLORIDE 100 MMOL/L (99-107); CREATININE 0.96 MG/DL (0.60-1.10); GLUCOSE 135 MG/DL (70-104); LIPASE 94 U/L (73-393); SODIUM 136 MMOL/L (135-145); TOTAL CARBON DIOXIDE 26.8 MMOL/L (24-32); eGFR 81 ML/MIN
[2019-02-23 13:15] VITALS: BP 144/89
== END 2019-02-23 14:30 | disposition home or self-care (01) ==
LOC: ER 11:55
DX: K59.00 Constipation, unspecified (principal); I10 Essential (primary) hypertension; G89.29 Other chronic pain; F12.90 Cannabis use, unspecified, uncomplicated; Z98.890 Other specified postprocedural states; Z56.0 Unemployment, unspecified; Z88.8 Allergy status to other drugs, medicaments and biological substances; Z79.899 Other long term (current) drug therapy
CPT/HCPCS: 80053; 83605; 83690; 85025; 99284; J7030

== ENCOUNTER 2022-03-07 12:09 | Inpatient (IN) | payer MEDICAID ==
[~2022-03-07] VITALS: Ht 180.3 cm; Wt 122.0 kg
[~2022-03-07 12:09] MED LIST changes: -DOCU-20 PO; +DOCU-348 PO; +LISI40TA13 PO; -LISI40TA4 PO; +PANT20TA18 PO; -PANT20TA3 PO
[2022-03-07] MEDS ORDERED: CefTRIAXone 2gm/D5W 50ml BAG 50 ML IV ONE (12:40)
[2022-03-07] MEDS ORDERED: normal saline 1000ML IV soln IVB ONE (12:40)
[2022-03-07] MEDS ORDERED: ipratropium/albuterol 3ml nebule NEB ONE (12:40)
[2022-03-07] MEDS ORDERED: methylPREDNISolone sod succ 125mg/2ml vial IV ONE (12:40)
[2022-03-07 13:27] LABS: BASOPHILS % (AUTO) 0.3 % (0-1); EOSINOPHILS % (AUTO) 0 % (0-6); HEMATOCRIT 41.4 % (42.0-52.0); HEMOGLOBIN 14.1 g/dl (14.0-17.9); LYMPHOCYTES # (AUTO) 2.4 X10'3 (1.1-4.8); LYMPHOCYTES % (AUTO) 14.2 % (21-51); MEAN CORPUSCULAR HEMOGLOBIN 34.7 PG (27.0-31.0); MEAN CORPUSCULAR HGB CONC 34.1 g/dL (33.0-36.5); MEAN CORPUSCULAR VOLUME 101.8 FL (78-98); MEAN PLATELET VOLUME 8.3 FL (7.4-10.4); MONOCYTES # (AUTO) 1.4 X10'3 (0-0.9); MONOCYTES % (AUTO) 8.3 % (2-12); NEUTROPHILS # (AUTO) 13.2 X10'3 (1.8-7.7); NEUTROPHILS % (AUTO) 77.2 % (42-75); PLATELET COUNT 325 X10'3 (140-440); RED BLOOD COUNT 4.06 X10'6 (4.70-6.10); RED CELL DISTRIBUTION WIDTH 13.4 % (11.5-14.5); WHITE BLOOD COUNT 17.1 X10'3 (4.5-11.0)
[2022-03-07 13:28] LABS: ABG BASE EXCESS 3.8 mmol/L (-2.0-2.0); ABG HCO3 33.6 mmol/L (22.0-26.0); ABG PCO2 (T) 77.4 mmHg (35.0-48.0); ABG PO2 (T) 119.5 mmHg (75.0-100.0); ALLEN'S TEST POSITIVE; FCOHb 1.1 % (0.0-3.9); FLOW 4 L/min; FMetHb 0.2 % (0.0-1.5); FO2Hb 96.7 % (94-97); PATIENT TEMPERATURE 37.3; TOTAL HEMOGLOBIN 14.6 G/dl (14.0-17.9)
[2022-03-07 13:51] LABS: ALANINE AMINOTRANSFERASE 33 U/L (12-78); ALBUMIN 2.2 G/DL (3.4-5.0); ALBUMIN/GLOBULIN RATIO 0.4 (1.1-1.5); ALKALINE PHOSPHATASE 65 IU/L (46-116); ANION GAP 7 (8-16); ASPARTATE AMINO TRANSFERASE 39 U/L (10-37); BILIRUBIN,TOTAL 0.8 MG/DL (0.1-1.0); BLOOD UREA NITROGEN 17 MG/DL (7-18); BUN/CREATININE RATIO 16.8 (5.4-32.0); CALCIUM 7.5 MG/DL (8.5-10.1); CHLORIDE 95 MMOL/L (99-107); CREATININE 1.01 MG/DL (0.60-1.10); GLUCOSE 150 MG/DL (70-104); POTASSIUM 3.6 MMOL/L (3.5-5.1); SODIUM 135 MMOL/L (135-145); TOTAL CARBON DIOXIDE 33.4 MMOL/L (24-32); TOTAL PROTEIN 7.4 G/DL (6.4-8.2); eGFR 75 ML/MIN
[2022-03-07 16:03] LABS: ABG BASE EXCESS 5.1 mmol/L (-2.0-2.0); ABG HCO3 32.7 mmol/L (22.0-26.0); ABG OXYGEN SATURATION 93.9 % (94-97); ABG PCO2 (T) 60.8 mmHg (35.0-48.0); ABG PO2 (T) 70.7 mmHg (75.0-100.0); ALLEN'S TEST POSITIVE; FCOHb 1.2 % (0.0-3.9); FMetHb 0.1 % (0.0-1.5); FO2Hb 92.7 % (94-97); TOTAL HEMOGLOBIN 14.8 G/dl (14.0-17.9)
--- NOTE | 2022-03-07 16:09 | NUR ---
Critical abg results reported to DR. Allen and BENTLEY Nam. decrease fio2 to 28%. Addendum: 03/07/22 at 1609 by Faustina Lenz RT Amended: Links added.
[2022-03-07] MEDS ORDERED: INDLA60C PO (16:31)
[2022-03-07] MEDS ORDERED: IBUP-1984 PO (16:32)
[2022-03-07] MEDS ORDERED: ACET-1008 PO (16:33)
[2022-03-07] MEDS ORDERED: ASPI-10 PO (16:33)
[2022-03-07] MEDS ORDERED: ondansetron/PF 4mg/2ml inj IV PRN (17:05)
[2022-03-07] MEDS ORDERED: potassium Cl 20 mEq SR tablet PO PRN (17:05)
[2022-03-07] MEDS ORDERED: potassium Cl 40MEQ/1/2NS 520ml 520 ML IV PRN (17:05)
[2022-03-07] MEDS ORDERED: acetaminophen 325mg tablet PO PRN (17:05)
[2022-03-07] MEDS ORDERED: magnesium hydroxide 30ml (MOM) UD suspension PO PRN (17:05)
[2022-03-07] MEDS ORDERED: magnesium 4gm in 100ml NS 100 ML IV PRN (17:05)
[2022-03-07] MEDS ORDERED: mag hydrox/Alum hydrox/simeth 30ml oral suspension PO PRN (17:05)
[2022-03-07] MEDS: ipratropium/albuterol 3ml nebule NEB SCH ×2 (20:18→23:12)
[2022-03-07] MEDS: docusate sod 100mg capsule PO SCH (20:35)
[2022-03-07] MEDS: oseltamivir phos 75mg capsule PO SCH (20:35)
[2022-03-07] MEDS: enoxaparin 30mg/0.3ml syringe SQ SCH (20:36)
[2022-03-07] MEDS: K and/or MAG REPLACEMENT MC SCH (20:37)
[2022-03-08] MEDS: ipratropium/albuterol 3ml nebule NEB SCH ×6 (02:43→23:03)
[2022-03-08 03:35] LABS: BASOPHILS % (AUTO) 0.2 % (0-1); EOSINOPHILS % (AUTO) 0 % (0-6); HEMATOCRIT 35.3 % (42.0-52.0); HEMOGLOBIN 12.1 g/dl (14.0-17.9); LYMPHOCYTES % (AUTO) 10.4 % (21-51); MEAN CORPUSCULAR HEMOGLOBIN 34.9 PG (27.0-31.0); MEAN CORPUSCULAR HGB CONC 34.2 g/dL (33.0-36.5); MEAN CORPUSCULAR VOLUME 101.9 FL (78-98); MEAN PLATELET VOLUME 8.8 FL (7.4-10.4); MONOCYTES # (AUTO) 0.2 X10'3 (0-0.9); MONOCYTES % (AUTO) 2.5 % (2-12); NEUTROPHILS # (AUTO) 8.4 X10'3 (1.8-7.7); NEUTROPHILS % (AUTO) 86.9 % (42-75); PLATELET COUNT 229 X10'3 (140-440); RED BLOOD COUNT 3.46 X10'6 (4.70-6.10); RED CELL DISTRIBUTION WIDTH 13.4 % (11.5-14.5); WHITE BLOOD COUNT 9.6 X10'3 (4.5-11.0)
[2022-03-08 03:48] LABS: ALBUMIN 1.9 G/DL (3.4-5.0); ANION GAP 7 (8-16); BLOOD UREA NITROGEN 29 MG/DL (7-18); BUN/CREATININE RATIO 21.5 (5.4-32.0); CALCIUM 7.1 MG/DL (8.5-10.1); CHLORIDE 97 MMOL/L (99-107); CREATININE 1.35 MG/DL (0.60-1.10); GLUCOSE 189 MG/DL (70-104); MAGNESIUM 1.2 MG/DL (1.5-2.4); POTASSIUM 3.2 MMOL/L (3.5-5.1); SODIUM 136 MMOL/L (135-145); TOTAL CARBON DIOXIDE 32.2 MMOL/L (24-32); eGFR 54 ML/MIN
--- NOTE | 2022-03-08 05:11 | NUR ---
DR. BEDOYA PAGED FOR NEW HYPOTENSION. MD STARTED PT ON MAINTENANCE FLUIDS AT 70ML/HR
[2022-03-08] MEDS ORDERED: normal saline 1000ml 1,000 ML IV SCH (05:15)
--- NOTE | 2022-03-08 06:10 | NUR ---
Patient in room PCU 3022. I have received report from Jessica HAGAN and had the opportunity to ask questions and assume patient care.
[2022-03-08] MEDS: K and/or MAG REPLACEMENT MC SCH ×2 (08:00→20:00)
[2022-03-08] MEDS: docusate sod 100mg capsule PO SCH ×3 (08:00→20:32)
[2022-03-08] MEDS: levoFLOXACIN-Levaquin 500mg/D5 100 ML IV SCH (08:46)
[2022-03-08] MEDS: potassium Cl 20 mEq SR tablet PO PRN ×2 (08:46→13:50)
[2022-03-08] MEDS: enoxaparin 30mg/0.3ml syringe SQ SCH ×2 (08:46→20:33)
[2022-03-08] MEDS: oseltamivir phos 75mg capsule PO SCH ×2 (08:47→20:32)
[2022-03-08] MEDS: magnesium Cl slow-release 64mg tablet PO PRN (08:47)
[2022-03-08 09:04] VITALS: BP 124/69
[2022-03-08] MEDS: predniSONE 20 mg tablet PO SCH (09:11)
[2022-03-08] MEDS: HYDROcodone/acetaminophen 5mg/325mg tablet PO PRN ×2 (11:35→20:35)
[2022-03-08 12:01] VITALS: BP 126/71
[2022-03-08 16:03] VITALS: BP 137/74
[2022-03-08 18:00] VITALS: BP 106/66
[2022-03-08 22:00] VITALS: BP 122/66
[2022-03-09] MEDS: ipratropium/albuterol 3ml nebule NEB SCH ×5 (03:00→20:14)
[2022-03-09 05:57] VITALS: BP 127/72
--- NOTE | 2022-03-09 06:15 | NUR ---
Patient in room PCU 3022. I have received report from Tito HAGAN and had the opportunity to ask questions and assume patient care.
[2022-03-09 06:21] LABS: BASOPHILS # (AUTO) 0.1 X10'3 (0-0.2); BASOPHILS % (AUTO) 0.8 % (0-1); EOSINOPHILS % (AUTO) 0 % (0-6); HEMATOCRIT 37.4 % (42.0-52.0); HEMOGLOBIN 12.9 g/dl (14.0-17.9); LYMPHOCYTES # (AUTO) 1.5 X10'3 (1.1-4.8); LYMPHOCYTES % (AUTO) 15.5 % (21-51); MEAN CORPUSCULAR HEMOGLOBIN 35.3 PG (27.0-31.0); MEAN CORPUSCULAR HGB CONC 34.5 g/dL (33.0-36.5); MEAN CORPUSCULAR VOLUME 102.2 FL (78-98); MEAN PLATELET VOLUME 8.3 FL (7.4-10.4); MONOCYTES # (AUTO) 0.7 X10'3 (0-0.9); MONOCYTES % (AUTO) 7.2 % (2-12); NEUTROPHILS # (AUTO) 7.3 X10'3 (1.8-7.7); NEUTROPHILS % (AUTO) 76.5 % (42-75); PLATELET COUNT 220 X10'3 (140-440); RED BLOOD COUNT 3.66 X10'6 (4.70-6.10); RED CELL DISTRIBUTION WIDTH 13.7 % (11.5-14.5); WHITE BLOOD COUNT 9.5 X10'3 (4.5-11.0)
[2022-03-09 06:52] LABS: ALBUMIN 2.1 G/DL (3.4-5.0); ANION GAP 6 (8-16); BLOOD UREA NITROGEN 30 MG/DL (7-18); BUN/CREATININE RATIO 30.9 (5.4-32.0); CALCIUM 8.1 MG/DL (8.5-10.1); CHLORIDE 103 MMOL/L (99-107); CREATININE 0.97 MG/DL (0.60-1.10); GLUCOSE 127 MG/DL (70-104); MAGNESIUM 1.6 MG/DL (1.5-2.4); POTASSIUM 3.8 MMOL/L (3.5-5.1); SODIUM 141 MMOL/L (135-145); TOTAL CARBON DIOXIDE 32.1 MMOL/L (24-32); eGFR 79 ML/MIN
[2022-03-09 07:21] VITALS: BP 110/58
[2022-03-09] MEDS: docusate sod 100mg capsule PO SCH ×2 (08:00→20:29)
[2022-03-09] MEDS: K and/or MAG REPLACEMENT MC SCH ×2 (08:00→20:00)
[2022-03-09] MEDS: enoxaparin 30mg/0.3ml syringe SQ SCH ×2 (08:30→20:30)
[2022-03-09] MEDS: levoFLOXACIN-Levaquin 500mg/D5 100 ML IV SCH (08:30)
[2022-03-09] MEDS: predniSONE 20 mg tablet PO SCH (08:31)
[2022-03-09] MEDS: oseltamivir phos 75mg capsule PO SCH ×2 (08:33→20:29)
[2022-03-09] MEDS: HYDROcodone/acetaminophen 5mg/325mg tablet PO PRN ×2 (08:33→20:31)
[2022-03-09] MEDS ORDERED: benzonatate 100mg capsule PO PRN (08:50)
[2022-03-09 12:49] VITALS: BP 140/76
[2022-03-09 18:00] VITALS: BP 139/71
--- NOTE | 2022-03-09 18:14 | NUR ---
Problems reprioritized. Patient report given, questions answered & plan of care reviewed with Tito HAGAN, patient stable at transfer of care.
[2022-03-10] MEDS: ipratropium/albuterol 3ml nebule NEB SCH ×4 (00:01→11:02)
[2022-03-10 02:00] VITALS: BP 122/54
[2022-03-10 06:00] VITALS: BP 140/71
[2022-03-10 06:36] LABS: BASOPHILS # (AUTO) 0.1 X10'3 (0-0.2); BASOPHILS % (AUTO) 0.6 % (0-1); EOSINOPHILS % (AUTO) 0.2 % (0-6); HEMATOCRIT 36.7 % (42.0-52.0); HEMOGLOBIN 12.6 g/dl (14.0-17.9); LYMPHOCYTES # (AUTO) 2.1 X10'3 (1.1-4.8); LYMPHOCYTES % (AUTO) 26.6 % (21-51); MEAN CORPUSCULAR HEMOGLOBIN 34.8 PG (27.0-31.0); MEAN CORPUSCULAR HGB CONC 34.2 g/dL (33.0-36.5); MEAN CORPUSCULAR VOLUME 101.6 FL (78-98); MEAN PLATELET VOLUME 7.9 FL (7.4-10.4); MONOCYTES # (AUTO) 0.8 X10'3 (0-0.9); MONOCYTES % (AUTO) 10.3 % (2-12); NEUTROPHILS # (AUTO) 4.8 X10'3 (1.8-7.7); NEUTROPHILS % (AUTO) 62.3 % (42-75); PLATELET COUNT 206 X10'3 (140-440); RED BLOOD COUNT 3.61 X10'6 (4.70-6.10); RED CELL DISTRIBUTION WIDTH 13.4 % (11.5-14.5); WHITE BLOOD COUNT 7.8 X10'3 (4.5-11.0)
--- NOTE | 2022-03-10 06:40 | NUR ---
Patient in room PCU 3022. I have received report from BENTLEY PUGA, and had the opportunity to ask questions and assume patient care.
[2022-03-10 06:42] LABS: ALBUMIN 2.1 G/DL (3.4-5.0); ANION GAP 2 (8-16); BLOOD UREA NITROGEN 25 MG/DL (7-18); BUN/CREATININE RATIO 25.8 (5.4-32.0); CALCIUM 8.3 MG/DL (8.5-10.1); CHLORIDE 104 MMOL/L (99-107); CREATININE 0.97 MG/DL (0.60-1.10); GLUCOSE 99 MG/DL (70-104); MAGNESIUM 1.2 MG/DL (1.5-2.4); POTASSIUM 3.6 MMOL/L (3.5-5.1); SODIUM 141 MMOL/L (135-145); TOTAL CARBON DIOXIDE 34.9 MMOL/L (24-32); eGFR 79 ML/MIN
[2022-03-10] MEDS: K and/or MAG REPLACEMENT MC SCH (06:48)
[2022-03-10] MEDS: docusate sod 100mg capsule PO SCH (07:44)
[2022-03-10] MEDS: enoxaparin 30mg/0.3ml syringe SQ SCH (07:44)
[2022-03-10] MEDS: predniSONE 20 mg tablet PO SCH (07:45)
[2022-03-10] MEDS: magnesium Cl slow-release 64mg tablet PO PRN (07:45)
[2022-03-10] MEDS: HYDROcodone/acetaminophen 5mg/325mg tablet PO PRN (07:45)
[2022-03-10] MEDS: levoFLOXACIN-Levaquin 500mg/D5 100 ML IV SCH (07:46)
[2022-03-10] MEDS: oseltamivir phos 75mg capsule PO SCH (09:14)
[2022-03-10] MEDS ORDERED: ALBU8HFA PO (10:50)
[2022-03-10] MEDS ORDERED: LEVO-65 PO (10:50)
[2022-03-10] MEDS ORDERED: PRED20TA PO (10:50)
[2022-03-10] MEDS ORDERED: TAM75C PO (10:50)
[2022-03-10 11:18] VITALS: BP 152/87
[2022-03-10 11:19] VITALS: BP 152/87
--- NOTE | 2022-03-10 12:42 | NUR ---
PT STABLE FOR DISCHARGE PER MD. DISCHARGE AND FOLLOW UP INSTRUCTIONS REVIEWED WITH PT. APPROPRIATE PAPERWORK SIGNED. PRESCRIPTIONS FAXED TO [facility]. BELONGINGS GATHERED AND SENT WITH PT. TELE BOX REMOVED. PIV REMOVED WITH TIP INTACT. PT WHEELED TO PRIVATE VEHICLE BY HOSPITAL STAFF. PT DISCHARGED TO HOME.
== END 2022-03-10 12:35 | disposition home or self-care (01) | DRG 140 ==
LOC: ER 12:10 → ED HOLD 17:09 → PCU 3S 03-08 06:57
PROVIDERS: ADMIT Family Medicine; ATTEND Family Medicine
PROC: 5A09357 Assistance with Respiratory Ventilation, Less than 24 Consecutive Hours, Continuous Positive Airway Pressure (ICD-10-PCS; principal; 2022-03-07)
DX: J44.1 Chronic obstructive pulmonary disease with (acute) exacerbation (principal); J96.01 Acute respiratory failure with hypoxia; J10.08 Influenza due to other identified influenza virus with other specified pneumonia; E87.29 Other acidosis; J15.9 Unspecified bacterial pneumonia; E86.0 Dehydration; Z20.822 Contact with and (suspected) exposure to COVID-19; F12.90 Cannabis use, unspecified, uncomplicated; G89.29 Other chronic pain; K21.9 Gastro-esophageal reflux disease without esophagitis; K57.90 Diverticulosis of intestine, part unspecified, without perforation or abscess without bleeding; M54.9 Dorsalgia, unspecified; I10 Essential (primary) hypertension; N40.0 Benign prostatic hyperplasia without lower urinary tract symptoms; Z82.3 Family history of stroke; Z82.49 Family history of ischemic heart disease and other diseases of the circulatory system; Z56.0 Unemployment, unspecified; Z95.0 Presence of cardiac pacemaker; Z88.8 Allergy status to other drugs, medicaments and biological substances
CPT/HCPCS: 36415; 36600; 71045; 80048; 80053; 82803; 83605; 83735; 83880; 85018; 85025; 87040; 87081; 87502; 87503; 87635; 94640; 94660; 94760; 99285; C9803; G0378; J0696; J1650; J1956; J2930; J7030; J7040; J7512

== ENCOUNTER 2022-04-03 15:45 | Inpatient (IN) | payer MEDICAID ==
[~2022-04-03] VITALS: Ht 175.3 cm; Wt 138.4 kg
[~2022-04-03 15:45] MED LIST changes: +ACET-1008 PO; +ALBU8HFA PO; -AMLO5TAB16 PO; +ASPI-10 PO; -BENZ0.5T43 PO; -DOCU-348 PO; +IBUP-1984 PO; +INDLA60C PO; +PRED20TA PO; +TAM75C PO
[2022-04-03 16:21] LABS: BASOPHILS # (AUTO) 0.1 X10'3 (0-0.2); BASOPHILS % (AUTO) 1.1 % (0-1); EOSINOPHILS % (AUTO) 0.3 % (0-6); HEMOGLOBIN 13.7 g/dl (14.0-17.9); LYMPHOCYTES % (AUTO) 20.2 % (21-51); MEAN CORPUSCULAR HEMOGLOBIN 34.7 PG (27.0-31.0); MEAN CORPUSCULAR HGB CONC 34.2 g/dL (33.0-36.5); MEAN CORPUSCULAR VOLUME 101.5 FL (78-98); MONOCYTES # (AUTO) 0.6 X10'3 (0-0.9); MONOCYTES % (AUTO) 6.2 % (2-12); NEUTROPHILS # (AUTO) 7.1 X10'3 (1.8-7.7); NEUTROPHILS % (AUTO) 72.2 % (42-75); PLATELET COUNT 232 X10'3 (140-440); RED BLOOD COUNT 3.94 X10'6 (4.70-6.10); RED CELL DISTRIBUTION WIDTH 15.9 % (11.5-14.5); WHITE BLOOD COUNT 9.8 X10'3 (4.5-11.0)
[2022-04-03 16:30] LABS: ALANINE AMINOTRANSFERASE 22 U/L (12-78); ALBUMIN 3.2 G/DL (3.4-5.0); ALBUMIN/GLOBULIN RATIO 0.7 (1.1-1.5); ALKALINE PHOSPHATASE 82 IU/L (46-116); ASPARTATE AMINO TRANSFERASE 22 U/L (10-37); BILIRUBIN,TOTAL 0.9 MG/DL (0.1-1.0); CALCIUM 8.6 MG/DL (8.5-10.1); CREATININE 0.95 MG/DL (0.60-1.10); GLUCOSE 142 MG/DL (70-104); LIPASE 59 U/L (73-393); POTASSIUM 3.9 MMOL/L (3.5-5.1); TOTAL CARBON DIOXIDE 29.7 MMOL/L (24-32); TOTAL PROTEIN 7.6 G/DL (6.4-8.2); eGFR 81 ML/MIN
[2022-04-03 16:33] LABS: ANION GAP 8 (8-16); BLOOD UREA NITROGEN 10 MG/DL (7-18); BUN/CREATININE RATIO 10.5 (5.4-32.0); CHLORIDE 100 MMOL/L (99-107); SODIUM 138 MMOL/L (135-145)
[2022-04-03] MEDS ORDERED: morphine 4 MG/ML inj SYRINge IV ONE ×2 (16:45→22:25)
[2022-04-03] MEDS ORDERED: ondansetron/PF 4mg/2ml inj IV ONE (16:45)
[2022-04-03] MEDS ORDERED: normal saline 1000ml 1,000 ML IV ONE (16:45)
[2022-04-03] MEDS ORDERED: iohexol 300mg/ml 100ml inj. ONE (17:12)
[2022-04-03] MEDS ORDERED: polyethylene glycol 3350 17gm powd pack PO STA (18:51)
[2022-04-03] MEDS ORDERED: lactulose 20gm/30ml cup PO ONE (18:55)
[2022-04-03 19:32] LABS: CLARITY,URINE SLIGHTLY CLOUDY (Clear); COLOR,URINE YELLOW (Yellow); GLUCOSE, URINE NEGATIVE (Neg); KETONES,URINE NEGATIVE (Neg); LEUKOCYTE ESTERASE ,URINE NEGATIVE (Neg); NITRITES, URINE NEGATIVE (Neg); OCCULT BLOOD,URINE MODERATE (Neg); PH,URINE 6.5 (4.8-8.0); PROTEIN,URINE NEGATIVE (Neg)
[2022-04-03 19:35] LABS: UA COLLECTION TYPE NON-SPECIFIED
[2022-04-03 19:39] LABS: RBC,URINE 50-100 /HPF (0-2)
[2022-04-03 19:40] LABS: BACTERIA,URINE NONE SEEN /HPF (Neg)
[2022-04-03 19:42] LABS: CAL OXALATE CRYSTALS FEW /HPF (NEGATIVE); WBC CLUMPS,URINE FEW /HPF (NEGATIVE)
[2022-04-03 19:43] LABS: SQUAMOUS EPITHELIAL CELL,UR MODERATE /LPF (FEW)
[2022-04-03] MEDS ORDERED: magnesium 4gm in 100ml NS 100 ML IV PRN (21:35)
[2022-04-03] MEDS ORDERED: potassium Cl 40MEQ/1/2NS 520ml 520 ML IV PRN (21:35)
[2022-04-03] MEDS ORDERED: morphine 2 MG/ML inj. syringe IV PRN (21:35)
[2022-04-03] MEDS: normal saline 1000ml 1,000 ML IV SCH (22:07)
[2022-04-03 22:27] LABS: D-DIMER 2.19 MG/L FEU (0-0.50)
[2022-04-04] MEDS: metroNIDAZOLE-Flagyl 500mg/NS 100 ML IV SCH ×2 (00:45→08:06)
[2022-04-04] MEDS: piperacillin/tazo 3.375gm/50ml 50 ML IV SCH ×3 (02:03→14:30)
[2022-04-04] MEDS: morphine 2 MG/ML inj. syringe IV PRN ×2 (04:29→12:31)
[2022-04-04 05:02] LABS: BASOPHILS % (AUTO) 0.5 % (0-1); EOSINOPHILS # (AUTO) 0.1 X10'3 (0-0.9); EOSINOPHILS % (AUTO) 1.3 % (0-6); HEMATOCRIT 37.4 % (42.0-52.0); HEMOGLOBIN 12.5 g/dl (14.0-17.9); LYMPHOCYTES # (AUTO) 2.6 X10'3 (1.1-4.8); LYMPHOCYTES % (AUTO) 34.6 % (21-51); MEAN CORPUSCULAR HEMOGLOBIN 34.5 PG (27.0-31.0); MEAN CORPUSCULAR HGB CONC 33.6 g/dL (33.0-36.5); MEAN CORPUSCULAR VOLUME 102.9 FL (78-98); MEAN PLATELET VOLUME 8.2 FL (7.4-10.4); MONOCYTES # (AUTO) 0.7 X10'3 (0-0.9); MONOCYTES % (AUTO) 9.2 % (2-12); NEUTROPHILS # (AUTO) 4.1 X10'3 (1.8-7.7); NEUTROPHILS % (AUTO) 54.4 % (42-75); PLATELET COUNT 207 X10'3 (140-440); RED BLOOD COUNT 3.63 X10'6 (4.70-6.10); RED CELL DISTRIBUTION WIDTH 16.1 % (11.5-14.5); WHITE BLOOD COUNT 7.6 X10'3 (4.5-11.0)
[2022-04-04 05:26] LABS: ALANINE AMINOTRANSFERASE 17 U/L (12-78); ALBUMIN/GLOBULIN RATIO 0.8 (1.1-1.5); ALKALINE PHOSPHATASE 76 IU/L (46-116); ANION GAP 5 (8-16); ASPARTATE AMINO TRANSFERASE 20 U/L (10-37); BILIRUBIN,TOTAL 0.7 MG/DL (0.1-1.0); BLOOD UREA NITROGEN 10 MG/DL (7-18); CALCIUM 7.8 MG/DL (8.5-10.1); CHLORIDE 104 MMOL/L (99-107); GLUCOSE 113 MG/DL (70-104); MAGNESIUM 1.7 MG/DL (1.5-2.4); POTASSIUM 3.9 MMOL/L (3.5-5.1); SODIUM 141 MMOL/L (135-145); TOTAL CARBON DIOXIDE 32.1 MMOL/L (24-32); eGFR 76 ML/MIN
--- NOTE | 2022-04-04 06:40 | NUR ---
Patient asleep, laying on his left side.We will monitor.
[2022-04-04] MEDS ORDERED: diatr meglu/diatrizoate 30ml oral sol.-(3 dose) bottle ONE (07:28)
[2022-04-04] MEDS: normal saline 1000ml 1,000 ML IV SCH ×2 (07:35→11:10)
[2022-04-04] MEDS: K and/or MAG REPLACEMENT MC SCH ×2 (08:00→20:00)
--- NOTE | 2022-04-04 08:18 | NUR ---
Attempted to call report, nurse Josefina not available at the moment.States she will call ED RN back.
--- NOTE | 2022-04-04 08:37 | NUR ---
PATUIENT TO CT.
[2022-04-04 09:45] VITALS: BP 94/54
[2022-04-04 18:00] VITALS: BP 151/76
--- NOTE | 2022-04-04 18:27 | NUR ---
Report to Jayashree HAGAN
[2022-04-04] MEDS ORDERED: midazolam 1 mg/ML 2ml injection ONE (18:57)
[2022-04-04] MEDS ORDERED: fentaNYL /PF 50mcg/ml 5ml ampule ONE (18:57)
[2022-04-04] MEDS ORDERED: propofol inj 20 ML IV ONE (18:58)
[2022-04-04] MEDS ORDERED: rocuronium 10mg/ml inj IV ONE ×2 (18:58)
[2022-04-04] MEDS ORDERED: LIDOcaine 2% (20mg/ml) 5ml vial ONE (18:58)
[2022-04-04] MEDS ORDERED: furosemide 20 MG/2 ML vial ONE (18:58)
[2022-04-04] MEDS ORDERED: sevoflurane 250ml liquid IH ONE (18:58)
[2022-04-04] MEDS ORDERED: dexamethasone sod phosphate 10mg/ml inj ONE (18:58)
[2022-04-04] MEDS ORDERED: ROPIVAcaine 0.5% (5mg/ml) 30ml vial IJ ONE (19:43)
[2022-04-04] MEDS: heparin, porcine 5000 units/ml vial SQ SCH (20:00)
[2022-04-04] MEDS ORDERED: ringers solution, lacted 1,000 ML IV SCH (20:15)
[2022-04-04] MEDS ORDERED: morphine 2 MG/ML inj. syringe IV PRN (20:15)
[2022-04-04] MEDS ORDERED: ondansetron/PF 4mg/2ml inj IV PRN (20:15)
[2022-04-04] MEDS ORDERED: morphine 4 MG/ML inj SYRINge IV PRN (20:15)
[2022-04-04] MEDS ORDERED: meperidine/PF 25mg/ml syringe IV PRN ×3 (20:15)
[2022-04-04] MEDS ORDERED: proCHLORperazine 10 MG/2 ml inj IV PRN (20:15)
[2022-04-04] MEDS ORDERED: albumin (Human) 5% 250ml 250 ML IV ONE ×2 (21:33)
[2022-04-04] MEDS ORDERED: FENTANYL-0.9 % NACL/PF 100 ML IV PRN (23:00)
[2022-04-04] MEDS ORDERED: MIDAZolam 1 MG/ML 5ML VIAL ONE (23:08)
[2022-04-04] MEDS ORDERED: fentaNYL/PF 50MCG/1 ML 2ML syringe ONE (23:09)
[2022-04-04 23:31] VITALS: BP 131/79
[2022-04-04 23:35] VITALS: BP 131/73
[2022-04-04 23:40] VITALS: BP 148/82
[2022-04-04 23:50] VITALS: BP 145/83
[2022-04-04 23:59] LABS: ABG BASE EXCESS -2.1 mmol/L (-2.0-2.0); ABG HCO3 22.3 mmol/L (22.0-26.0); ABG OXYGEN SATURATION 97.7 % (94-97); ABG PCO2 (T) 36.4 mmHg (35.0-48.0); ABG PO2 (T) 98.9 mmHg (75.0-100.0); ALLEN'S TEST POSITIVE; FCOHb 0.5 % (0.0-3.9); FMetHb 0.3 % (0.0-1.5); FO2Hb 96.9 % (94-97); PATIENT TEMPERATURE 36.6; PEEP 5 cm H2O; RESPIRATORY RATE 12 b/min; TIDAL VOLUME 600 mL; TOTAL HEMOGLOBIN 12.6 G/dl (14.0-17.9)
[2022-04-05] VITALS (34 sets, daily range): BP systolic 81–140; BP diastolic 45–88
[2022-04-05] MEDS: propofol 1000mg/100ml bottle 100 ML IV SCH ×2 (00:02→06:05)
[2022-04-05] MEDS ORDERED: FENTANYL-0.9 % NACL/PF 100 ML IV PRN (00:11)
--- NOTE | 2022-04-05 00:14 | NUR ---
PT DID NOT COME BACK TO SURGICAL FLOOR AFTER SURGERY WAS TRANSFERRED TO CICU.
--- NOTE | 2022-04-05 00:31 | NUR ---
PT NEEDED TO REMAIN INTUBATED AFTER A LONG/DIFFICULT SURGERY. PER DIEM PHYSICAL THERAPIST RECOVERED PT IN THE ICU. RT PRESENT FOR CONNECTING TO THE VENT. PROPOFOL AND LR STARTED. HEMOVAC PRESENT MIDLINE TO ABDOMEN. ALFIE DRAIN RT LOWER QUADRANT OF ABDOMEN. ALMODOVAR IN PLACE; PATENT. 20G TO RT ANT; 18G TO LT HAND; INFUSING LR AND PROPOFOL. PUPILS EQUAL 2MM REACTIVE. VSS Addendum: 04/05/22 at 0100 by May Hyman RN Amended: Links added.
[2022-04-05 00:48] LABS: BASOPHILS # (AUTO) 0.1 X10'3 (0-0.2); BASOPHILS % (AUTO) 0.7 % (0-1); EOSINOPHILS % (AUTO) 0.1 % (0-6); HEMATOCRIT 35.8 % (42.0-52.0); HEMOGLOBIN 12.2 g/dl (14.0-17.9); LYMPHOCYTES # (AUTO) 1.8 X10'3 (1.1-4.8); LYMPHOCYTES % (AUTO) 13.9 % (21-51); MEAN CORPUSCULAR HEMOGLOBIN 34.8 PG (27.0-31.0); MEAN CORPUSCULAR HGB CONC 33.9 g/dL (33.0-36.5); MEAN CORPUSCULAR VOLUME 102.6 FL (78-98); MEAN PLATELET VOLUME 7.9 FL (7.4-10.4); MONOCYTES # (AUTO) 0.7 X10'3 (0-0.9); MONOCYTES % (AUTO) 5.2 % (2-12); NEUTROPHILS # (AUTO) 10.1 X10'3 (1.8-7.7); NEUTROPHILS % (AUTO) 80.1 % (42-75); PLATELET COUNT 217 X10'3 (140-440); RED BLOOD COUNT 3.49 X10'6 (4.70-6.10); RED CELL DISTRIBUTION WIDTH 16.3 % (11.5-14.5); WHITE BLOOD COUNT 12.6 X10'3 (4.5-11.0)
[2022-04-05 01:03] LABS: ALANINE AMINOTRANSFERASE 16 U/L (12-78); ALBUMIN 2.8 G/DL (3.4-5.0); ALBUMIN/GLOBULIN RATIO 0.8 (1.1-1.5); ALKALINE PHOSPHATASE 54 IU/L (46-116); ANION GAP 8 (8-16); ASPARTATE AMINO TRANSFERASE 15 U/L (10-37); BILIRUBIN,TOTAL 1.7 MG/DL (0.1-1.0); BLOOD UREA NITROGEN 10 MG/DL (7-18); BUN/CREATININE RATIO 9.3 (5.4-32.0); CALCIUM 7.3 MG/DL (8.5-10.1); CHLORIDE 103 MMOL/L (99-107); CREATININE 1.07 MG/DL (0.60-1.10); GLUCOSE 143 MG/DL (70-104); MAGNESIUM 1.4 MG/DL (1.5-2.4); PHOSPHORUS 3.1 MG/DL (2.3-4.5); POTASSIUM 4.1 MMOL/L (3.5-5.1); SODIUM 139 MMOL/L (135-145); TOTAL CARBON DIOXIDE 28.1 MMOL/L (24-32); TOTAL PROTEIN 6.4 G/DL (6.4-8.2); eGFR 70 ML/MIN
[2022-04-05 02:17] LABS: ANISOCYTOSIS 1+; PLATELET ESTIMATE NORMAL; SMUDGE CELLS FEW; TOTAL CELLS COUNTED 100
[2022-04-05 02:29] LABS: APTT 23 SECONDS (22-32)
[2022-04-05 02:31] LABS: TRIGLYCERIDES 55 MG/DL (20-135)
[2022-04-05] MEDS ORDERED: NORepinephrine 8mg/ 250ml NS 250 ML IV ONE (02:31)
[2022-04-05 02:47] LABS: ABG BASE EXCESS -1.4 mmol/L (-2.0-2.0); ABG HCO3 24.2 mmol/L (22.0-26.0); ABG OXYGEN SATURATION 94.4 % (94-97); ABG PCO2 (T) 43.5 mmHg (35.0-48.0); ABG PO2 (T) 72.3 mmHg (75.0-100.0); ALLEN'S TEST POSITIVE; FCOHb 0.6 % (0.0-3.9); FMetHb 0.4 % (0.0-1.5); FO2Hb 93.5 % (94-97); PATIENT TEMPERATURE 36.7; PEEP 5 cm H2O; RESPIRATORY RATE 12 b/min; TIDAL VOLUME 600 mL; TOTAL HEMOGLOBIN 12.6 G/dl (14.0-17.9)
[2022-04-05] MEDS: NORepinephrine 8mg/ 250ml NS 250 ML IV SCH ×2 (03:04→17:11)
[2022-04-05] MEDS: piperacillin/tazo 3.375gm/50ml 50 ML IV SCH ×3 (03:29→20:47)
[2022-04-05] MEDS: normal saline 1000ml 1,000 ML IV SCH ×3 (03:35→20:33)
--- NOTE | 2022-04-05 06:30 | NUR ---
Patient in room CICU 2013. I have received report from BENTLEY Madrigal and had the opportunity to ask questions and assume patient care.
[2022-04-05] MEDS: heparin, porcine 5000 units/ml vial SQ SCH ×2 (07:29→20:40)
[2022-04-05] MEDS: famotidine/PF 10 mg/ml inj IV SCH ×2 (07:29→20:40)
[2022-04-05] MEDS: K and/or MAG REPLACEMENT MC SCH ×2 (08:00→20:00)
[2022-04-05] MEDS ORDERED: normal saline 1000ml 1,000 ML IV ONE ×4 (08:45→16:30)
[2022-04-05] MEDS: morphine 2 MG/ML inj. syringe IV PRN ×5 (09:26→22:01)
[2022-04-05] MEDS ORDERED: ALBU18HF2 PO (10:08)
[2022-04-05] MEDS ORDERED: PERFLUTREN PROTEIN-A MICROSPHR (Optison) 0.22 MG/ML 3ML VIAL IV ONE (10:35)
--- NOTE | 2022-04-05 12:06 | NUR ---
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 CT scan showed some concerning findings suspicious for colovesical fistula and possible large bowel obstruction per physician note. Pt currently POD #1 s/p exploratory laparotomy, left hemicolectomy, splenectomy takedown, creation of colostomy, and wound VAC placement. Per EMR pt extubated at 09:00 this morning. Pt remains NPO at this time. Recommend diet advancement to low fiber as medically indicated and initiation of nutrition support via PN IF expected prolonged NPO status/return of bowel function. Per MD at [facility] pt to get a PICC placed. Will continue to follow closely. Recommendations: 1) Advance to low fiber diet as medically indicated 2) Initiate nutrition support via PN if expected prolonged NPO status/return of bowel function 3) Bowel care per physician 4) Weekly scaled weights Addendum: 04/05/22 at [address] Amended: Links added.
[2022-04-05] MEDS ORDERED: amiodarone 150mg/dext, iso-os 100 ML IV ONE (16:30)
--- NOTE | 2022-04-05 16:30 | NUR ---
Pt remains tachycardic and hypotensive. Dr Monge ordered an additional 2 L NS Bolus to be followed by Amiodarone loading dose and drip.
--- NOTE | 2022-04-05 18:14 | NUR ---
Problems reprioritized. Patient report given, questions answered & plan of care reviewed.
[2022-04-05] MEDS: amiodarone inj. 450 MG in dextrose 5%-water 241 ML IV SCH (20:15)
[2022-04-06] VITALS (19 sets, daily range): BP systolic 96–134; BP diastolic 49–68
[2022-04-06] MEDS: amiodarone inj. 450 MG in dextrose 5%-water 241 ML IV SCH ×2 (00:05→05:10)
[2022-04-06] MEDS: mineral oil/petrolatum ophthal oint EACHEYE SCH ×3 (02:00→10:00)
[2022-04-06 02:44] LABS: BASOPHILS % (AUTO) 0.1 % (0-1); EOSINOPHILS % (AUTO) 0.2 % (0-6); HEMATOCRIT 29.3 % (42.0-52.0); HEMOGLOBIN 9.8 g/dl (14.0-17.9); LYMPHOCYTES # (AUTO) 3.2 X10'3 (1.1-4.8); LYMPHOCYTES % (AUTO) 22.6 % (21-51); MEAN CORPUSCULAR HEMOGLOBIN 34.6 PG (27.0-31.0); MEAN CORPUSCULAR HGB CONC 33.4 g/dL (33.0-36.5); MEAN CORPUSCULAR VOLUME 103.7 FL (78-98); MONOCYTES # (AUTO) 1.4 X10'3 (0-0.9); MONOCYTES % (AUTO) 10.1 % (2-12); NEUTROPHILS # (AUTO) 9.6 X10'3 (1.8-7.7); PLATELET COUNT 187 X10'3 (140-440); RED BLOOD COUNT 2.82 X10'6 (4.70-6.10); RED CELL DISTRIBUTION WIDTH 16.7 % (11.5-14.5); WHITE BLOOD COUNT 14.3 X10'3 (4.5-11.0)
[2022-04-06] MEDS: NORepinephrine 8mg/ 250ml NS 250 ML IV SCH ×2 (02:44→03:15)
[2022-04-06 03:02] LABS: ALANINE AMINOTRANSFERASE 12 U/L (12-78); ALBUMIN 2.1 G/DL (3.4-5.0); ALBUMIN/GLOBULIN RATIO 0.7 (1.1-1.5); ALKALINE PHOSPHATASE 49 IU/L (46-116); ANION GAP 6 (8-16); ASPARTATE AMINO TRANSFERASE 21 U/L (10-37); BILIRUBIN,TOTAL 1.4 MG/DL (0.1-1.0); BLOOD UREA NITROGEN 13 MG/DL (7-18); BUN/CREATININE RATIO 10.4 (5.4-32.0); CALCIUM 6.2 MG/DL (8.5-10.1); CHLORIDE 108 MMOL/L (99-107); CREATININE 1.25 MG/DL (0.60-1.10); GLUCOSE 204 MG/DL (70-104); POTASSIUM 3.9 MMOL/L (3.5-5.1); SODIUM 140 MMOL/L (135-145); TOTAL CARBON DIOXIDE 26.3 MMOL/L (24-32); TOTAL PROTEIN 5.2 G/DL (6.4-8.2); eGFR 59 ML/MIN
[2022-04-06] MEDS: morphine 2 MG/ML inj. syringe IV PRN ×7 (03:18→23:33)
[2022-04-06] MEDS: piperacillin/tazo 3.375gm/50ml 50 ML IV SCH ×3 (04:22→20:12)
[2022-04-06] MEDS: normal saline 1000ml 1,000 ML IV SCH ×2 (06:47→19:35)
[2022-04-06] MEDS: K and/or MAG REPLACEMENT MC SCH ×2 (07:05→19:56)
[2022-04-06] MEDS: heparin, porcine 5000 units/ml vial SQ SCH ×2 (07:39→20:13)
[2022-04-06] MEDS: famotidine/PF 10 mg/ml inj IV SCH ×2 (07:40→20:13)
[2022-04-06 08:14] LABS: PHOSPHORUS 3.5 MG/DL (2.3-4.5)
[2022-04-06] MEDS: amiodarone/D5 360MG/200ML BAG 200 ML IV SCH ×3 (10:46→22:54)
[2022-04-06] MEDS ORDERED: albuterol 2.5 MG/3 ML nebule NEB PRN (14:00)
--- NOTE | 2022-04-06 16:58 | NUR ---
paged Dr. Valencia re: Pt transferred from ICU. upon assessment, has dark red blood draining from colostomy site into bag. was told in report that there was no drainage. please come assess.
[2022-04-07] VITALS (13 sets, daily range): BP systolic 106–131; BP diastolic 52–71
[2022-04-07] MEDS: morphine 2 MG/ML inj. syringe IV PRN ×4 (01:49→20:23)
[2022-04-07] MEDS: normal saline 1000ml 1,000 ML IV SCH ×2 (02:38→15:35)
[2022-04-07] MEDS: amiodarone/D5 360MG/200ML BAG 200 ML IV SCH ×4 (04:58→22:18)
[2022-04-07] MEDS: piperacillin/tazo 3.375gm/50ml 50 ML IV SCH ×3 (05:36→20:22)
--- NOTE | 2022-04-07 07:09 | NUR ---
Problems reprioritized. Patient report given, questions answered & plan of care reviewed with Benjamin HAGAN.
[2022-04-07] MEDS: famotidine/PF 10 mg/ml inj IV SCH ×2 (07:28→20:22)
[2022-04-07] MEDS: heparin, porcine 5000 units/ml vial SQ SCH ×2 (07:30→20:22)
[2022-04-07 07:38] LABS: BASOPHILS # (AUTO) 0.1 X10'3 (0-0.2); BASOPHILS % (AUTO) 0.7 % (0-1); EOSINOPHILS % (AUTO) 0.2 % (0-6); HEMATOCRIT 26.3 % (42.0-52.0); HEMOGLOBIN 8.7 g/dl (14.0-17.9); LYMPHOCYTES # (AUTO) 1.7 X10'3 (1.1-4.8); LYMPHOCYTES % (AUTO) 16.2 % (21-51); MEAN CORPUSCULAR HEMOGLOBIN 34.5 PG (27.0-31.0); MEAN CORPUSCULAR HGB CONC 33.1 g/dL (33.0-36.5); MEAN CORPUSCULAR VOLUME 104.2 FL (78-98); MEAN PLATELET VOLUME 7.8 FL (7.4-10.4); MONOCYTES % (AUTO) 9.6 % (2-12); NEUTROPHILS # (AUTO) 7.9 X10'3 (1.8-7.7); NEUTROPHILS % (AUTO) 73.3 % (42-75); PLATELET COUNT 154 X10'3 (140-440); RED BLOOD COUNT 2.52 X10'6 (4.70-6.10); RED CELL DISTRIBUTION WIDTH 16.4 % (11.5-14.5); WHITE BLOOD COUNT 10.8 X10'3 (4.5-11.0)
[2022-04-07 08:00] LABS: ALANINE AMINOTRANSFERASE 14 U/L (12-78); ALBUMIN 1.9 G/DL (3.4-5.0); ALBUMIN/GLOBULIN RATIO 0.6 (1.1-1.5); ALKALINE PHOSPHATASE 53 IU/L (46-116); ANION GAP 6 (8-16); ASPARTATE AMINO TRANSFERASE 21 U/L (10-37); BILIRUBIN,TOTAL 0.9 MG/DL (0.1-1.0); BLOOD UREA NITROGEN 11 MG/DL (7-18); CALCIUM 6.7 MG/DL (8.5-10.1); CHLORIDE 105 MMOL/L (99-107); GLUCOSE 200 MG/DL (70-104); MAGNESIUM 1.9 MG/DL (1.5-2.4); PHOSPHORUS 2.6 MG/DL (2.3-4.5); POTASSIUM 4.2 MMOL/L (3.5-5.1); SODIUM 138 MMOL/L (135-145); TOTAL CARBON DIOXIDE 27.5 MMOL/L (24-32); TOTAL PROTEIN 5.3 G/DL (6.4-8.2); eGFR 76 ML/MIN
[2022-04-07] MEDS: K and/or MAG REPLACEMENT MC SCH ×2 (08:00→19:33)
--- NOTE | 2022-04-07 09:04 | NUR ---
paged Dr. Valencia re: Pt with 220cc of serosanguinous drainage from ALFIE drain in 3 hours. also pain not managed with current morphine doses. can we get 4mg q2hrs? has some gas in his colostomy bag - criteria for advancing his diet.
--- NOTE | 2022-04-07 09:37 | NUR ---
paged Dr. Valencia re: pt getting wound vac changed. can we get 4mg of morphine on board?
[2022-04-07] MEDS: morphine 4 MG/ML inj SYRINge IV PRN ×2 (09:50→11:50)
--- NOTE | 2022-04-07 10:46 | NUR ---
informed Dr. Valencia that pt has had 350cc out of ALFIE drain since 0600 and that pt has some gas in colostomy bag - Dr. Valencia states that's something for surgery to deal with.
--- NOTE | 2022-04-07 12:22 | NUR ---
spoke to Dr. Thompson over the phone - informed him that pt has put 650cc of serosanguineous fluid out of ALFIE drain since 0600. Dr. Thompson states to test it for creatinine and add a bigger bulb or bag to the end of drain. Informed Dr. Thompson that pt has gas in colostomy bag - Dr. Thompson states ok to order full liquid diet.
[2022-04-07] MEDS: ondansetron/PF 4mg/2ml inj IV PRN (17:42)
--- NOTE | 2022-04-07 18:00 | NUR ---
Patient in room PCU 3015. I have received report from Benjamin HAGAN and had the opportunity to ask questions and assume patient care.
[2022-04-07] MEDS: tamsulosin 0.4mg capsule PO SCH (20:50)
[2022-04-07] MEDS: propranolol LA 60 MG cap.SA.24H PO SCH (22:11)
[2022-04-08] VITALS (10 sets, daily range): BP systolic 91–143; BP diastolic 52–82
[2022-04-08] MEDS: morphine 2 MG/ML inj. syringe IV PRN ×6 (00:12→20:29)
[2022-04-08] MEDS: normal saline 1000ml 1,000 ML IV SCH ×3 (00:14→21:35)
[2022-04-08] MEDS: ondansetron/PF 4mg/2ml inj IV PRN (00:22)
[2022-04-08] MEDS: piperacillin/tazo 3.375gm/50ml 50 ML IV SCH ×3 (04:05→18:56)
--- NOTE | 2022-04-08 06:38 | NUR ---
Patient in room PCU 3015. I have received report from BENTLEY ALVARADO, and had the opportunity to ask questions and assume patient care.
--- NOTE | 2022-04-08 07:19 | NUR ---
Problems reprioritized. Patient report given, questions answered & plan of care reviewed with Lizzette HAGAN.
[2022-04-08] MEDS: famotidine/PF 10 mg/ml inj IV SCH (07:59)
[2022-04-08] MEDS: K and/or MAG REPLACEMENT MC SCH ×2 (08:00→19:37)
[2022-04-08] MEDS: lisinopril 20mg tablet PO SCH (08:01)
[2022-04-08] MEDS: tamsulosin 0.4mg capsule PO SCH (08:01)
[2022-04-08] MEDS: heparin, porcine 5000 units/ml vial SQ SCH ×2 (08:02→20:32)
--- NOTE | 2022-04-08 09:21 | NUR ---
Reassessment: Diet was advanced to full liquids 04/07 though no documentation of PO intake. Recommend advancing to low fiber diet as medically indicated. Pt receiving Zofran PRN for nausea. No documented BM from colostomy in EMR though physician notes state pt passing gas and with some liquid stool output. Will continue to follow closely. Recommendations: 1) Advance to low fiber diet as medically indicated 2) Monitor need for ONS 3) Bowel care per physician 4) Weekly scaled weights Addendum: 04/08/22 at [address] Amended: Links added.
[2022-04-08] MEDS: amiodarone/D5 360MG/200ML BAG 200 ML IV SCH ×4 (10:49→23:24)
--- NOTE | 2022-04-08 11:14 | NUR ---
AMIODARONE GTT STOPPED, BP 91/61, HR 62. MD OVIEDO. Addendum: 04/08/22 at 1118 by Lizzette Rock RN WILL CONTINUE TO MONITOR.
--- NOTE | 2022-04-08 18:27 | NUR ---
Problems reprioritized. Patient report given, questions answered & plan of care reviewed with BENTLEY METZ.
[2022-04-08] MEDS: famotidine 20mg tablet PO SCH (20:31)
[2022-04-08] MEDS: propranolol LA 60 MG cap.SA.24H PO SCH (20:31)
[2022-04-09] MEDS: morphine 2 MG/ML inj. syringe IV PRN ×3 (01:53→14:31)
[2022-04-09] MEDS: ondansetron/PF 4mg/2ml inj IV PRN (01:53)
[2022-04-09] MEDS: piperacillin/tazo 3.375gm/50ml 50 ML IV SCH ×3 (02:05→19:12)
[2022-04-09 02:37] VITALS: BP 108/69
[2022-04-09 05:02] LABS: BASOPHILS % (AUTO) 0.8 % (0-1); EOSINOPHILS % (AUTO) 0.5 % (0-6); HEMATOCRIT 26.4 % (42.0-52.0); HEMOGLOBIN 8.8 g/dl (14.0-17.9); LYMPHOCYTES # (AUTO) 1.4 X10'3 (1.1-4.8); LYMPHOCYTES % (AUTO) 21.8 % (21-51); MEAN CORPUSCULAR HEMOGLOBIN 34.5 PG (27.0-31.0); MEAN CORPUSCULAR HGB CONC 33.4 g/dL (33.0-36.5); MEAN CORPUSCULAR VOLUME 103.4 FL (78-98); MEAN PLATELET VOLUME 7.9 FL (7.4-10.4); MONOCYTES # (AUTO) 0.6 X10'3 (0-0.9); NEUTROPHILS # (AUTO) 4.3 X10'3 (1.8-7.7); NEUTROPHILS % (AUTO) 66.9 % (42-75); PLATELET COUNT 184 X10'3 (140-440); RED BLOOD COUNT 2.55 X10'6 (4.70-6.10); RED CELL DISTRIBUTION WIDTH 15.9 % (11.5-14.5); WHITE BLOOD COUNT 6.4 X10'3 (4.5-11.0)
[2022-04-09 05:07] LABS: ALANINE AMINOTRANSFERASE 13 U/L (12-78); ALBUMIN 1.7 G/DL (3.4-5.0); ALBUMIN/GLOBULIN RATIO 0.5 (1.1-1.5); ALKALINE PHOSPHATASE 47 IU/L (46-116); ANION GAP 3 (8-16); ASPARTATE AMINO TRANSFERASE 15 U/L (10-37); BILIRUBIN,TOTAL 0.5 MG/DL (0.1-1.0); BLOOD UREA NITROGEN 12 MG/DL (7-18); BUN/CREATININE RATIO 15.2 (5.4-32.0); CALCIUM 7.1 MG/DL (8.5-10.1); CHLORIDE 105 MMOL/L (99-107); CREATININE 0.79 MG/DL (0.60-1.10); GLUCOSE 133 MG/DL (70-104); MAGNESIUM 1.7 MG/DL (1.5-2.4); PHOSPHORUS 2.2 MG/DL (2.3-4.5); POTASSIUM 4.3 MMOL/L (3.5-5.1); SODIUM 138 MMOL/L (135-145); TOTAL CARBON DIOXIDE 29.6 MMOL/L (24-32); TOTAL PROTEIN 5.2 G/DL (6.4-8.2); eGFR > 90 ML/MIN
[2022-04-09] MEDS: amiodarone/D5 360MG/200ML BAG 200 ML IV SCH (05:30)
[2022-04-09] MEDS: normal saline 1000ml 1,000 ML IV SCH (06:06)
[2022-04-09] MEDS: K and/or MAG REPLACEMENT MC SCH ×2 (07:13→19:14)
[2022-04-09 07:16] VITALS: BP 97/52
--- NOTE | 2022-04-09 07:24 | NUR ---
Pt is confused and reports 0/10 pain. Phos is low at 2.2. paged and aware. Pt is
[2022-04-09] MEDS: Neutra Phos packet PO SCH ×3 (08:00→19:13)
[2022-04-09] MEDS: heparin, porcine 5000 units/ml vial SQ SCH ×2 (09:41→19:13)
[2022-04-09] MEDS: tamsulosin 0.4mg capsule PO SCH (09:42)
[2022-04-09] MEDS: famotidine 20mg tablet PO SCH ×2 (09:42→19:13)
[2022-04-09] MEDS: lisinopril 20mg tablet PO SCH (09:43)
[2022-04-09] MEDS ORDERED: morphine 4 MG/ML inj SYRINge IV PRN (10:25)
[2022-04-09] MEDS ORDERED: furosemide 20 MG/2 ML vial IV ONE (10:25)
[2022-04-09 11:28] VITALS: BP 101/69
[2022-04-09 16:00] VITALS: BP 92/56
[2022-04-09] MEDS: propranolol LA 60 MG cap.SA.24H PO SCH (21:00)
[2022-04-09] MEDS ORDERED: propranolol 40mg tablet PO ONE (21:00)
[2022-04-10 00:40] VITALS: BP 95/71
[2022-04-10 02:00] VITALS: BP 119/56
[2022-04-10] MEDS: piperacillin/tazo 3.375gm/50ml 50 ML IV SCH ×3 (03:40→19:24)
[2022-04-10 06:00] VITALS: BP 119/64
[2022-04-10 07:37] LABS: BASOPHILS # (AUTO) 0.1 X10'3 (0-0.2); BASOPHILS % (AUTO) 1.4 % (0-1); EOSINOPHILS % (AUTO) 0.7 % (0-6); HEMATOCRIT 27.2 % (42.0-52.0); LYMPHOCYTES # (AUTO) 1.5 X10'3 (1.1-4.8); MEAN CORPUSCULAR HEMOGLOBIN 33.9 PG (27.0-31.0); MEAN CORPUSCULAR HGB CONC 32.9 g/dL (33.0-36.5); MEAN PLATELET VOLUME 8.4 FL (7.4-10.4); MONOCYTES # (AUTO) 0.6 X10'3 (0-0.9); MONOCYTES % (AUTO) 10.5 % (2-12); NEUTROPHILS # (AUTO) 3.2 X10'3 (1.8-7.7); NEUTROPHILS % (AUTO) 59.4 % (42-75); PLATELET COUNT 182 X10'3 (140-440); RED BLOOD COUNT 2.64 X10'6 (4.70-6.10); RED CELL DISTRIBUTION WIDTH 15.5 % (11.5-14.5); WHITE BLOOD COUNT 5.3 X10'3 (4.5-11.0)
[2022-04-10 07:47] LABS: ALANINE AMINOTRANSFERASE 15 U/L (12-78); ALBUMIN 1.9 G/DL (3.4-5.0); ALBUMIN/GLOBULIN RATIO 0.6 (1.1-1.5); ALKALINE PHOSPHATASE 53 IU/L (46-116); ANION GAP 0 (8-16); ASPARTATE AMINO TRANSFERASE 22 U/L (10-37); BILIRUBIN,TOTAL 0.4 MG/DL (0.1-1.0); BLOOD UREA NITROGEN 11 MG/DL (7-18); BUN/CREATININE RATIO 12.5 (5.4-32.0); CALCIUM 7.6 MG/DL (8.5-10.1); CHLORIDE 104 MMOL/L (99-107); CREATININE 0.88 MG/DL (0.60-1.10); GLUCOSE 133 MG/DL (70-104); MAGNESIUM 1.6 MG/DL (1.5-2.4); PHOSPHORUS 2.7 MG/DL (2.3-4.5); POTASSIUM 4.2 MMOL/L (3.5-5.1); SODIUM 139 MMOL/L (135-145); TOTAL CARBON DIOXIDE 35.1 MMOL/L (24-32); TOTAL PROTEIN 5.3 G/DL (6.4-8.2); eGFR 88 ML/MIN
[2022-04-10] MEDS: lisinopril 20mg tablet PO SCH (08:37)
[2022-04-10] MEDS: famotidine 20mg tablet PO SCH ×2 (08:38→19:55)
[2022-04-10] MEDS: tamsulosin 0.4mg capsule PO SCH (08:38)
[2022-04-10] MEDS: heparin, porcine 5000 units/ml vial SQ SCH ×2 (08:39→19:55)
[2022-04-10] MEDS: Neutra Phos packet PO SCH ×2 (08:39→19:55)
[2022-04-10] MEDS: K and/or MAG REPLACEMENT MC SCH ×2 (08:40→19:01)
[2022-04-10] MEDS: ondansetron/PF 4mg/2ml inj IV PRN (08:49)
[2022-04-10] MEDS: morphine 2 MG/ML inj. syringe IV PRN ×2 (08:49→15:21)
[2022-04-10 11:00] VITALS: BP 116/45
--- NOTE | 2022-04-10 11:30 | NUR ---
F/u 04/10: Noted pt on carb controlled diet w/ no hx DM not on glycemic protocol. JEN d/w RN regarding cancelling carb controlled restriction and change to low-residue diet if MD agreeable given s/p colostomy. JEN attempted to see pt for colostomy diet ed but pt heavily asleep unable to stay awake for more than a second during RD visit; would benefit from colostomy ed once more appropriate. Given partial acceptance of initial full liquids RD recommends Ensure Plus High Protein TIDWM; MD notified. Recommendations: 1) Advance to low fiber diet as medically indicated 2) Ensure Plus High Protein TIDWM; pending physician verification in EMR 3) Bowel care per physician 4) Weekly scaled weights Addendum: 04/10/22 at [address] Amended: Links added.
[2022-04-10] MEDS: LACTOSE-REDUCED FOOD 237ML LIQUID PO SCH ×2 (13:00→18:52)
[2022-04-10 15:34] VITALS: BP 116/63
[2022-04-10] MEDS ORDERED: propranolol LA 60 MG cap.SA.24H PO SCH (19:26)
--- NOTE | 2022-04-10 20:34 | NUR ---
EMS ON UNIT TO TRANSFER PATIENT TO [facility]. REPORT WAS CALLED AND SPOKE TO BENTLEY MONTALVO. ALL PATIENT BELONGINGS HAVE BEEN RETURNED.
== END 2022-04-10 20:05 | DRG 710 ==
LOC: ER 15:46 → ED HOLD 21:42 → SUR 3N 04-04 09:53 → CICU 2S 04-04 23:34 → PCU 3S 04-06 16:05
PROVIDERS: ADMIT Internal Medicine; ATTEND Internal Medicine
PROC: BW211ZZ Computerized Tomography (CT Scan) of Abdomen and Pelvis using Low Osmolar Contrast (ICD-10-PCS; 2022-04-03)
PROC: 0DTG0ZZ Resection of Left Large Intestine, Open Approach (ICD-10-PCS; 2022-04-04)
PROC: 0D1L0Z4 Bypass Transverse Colon to Cutaneous, Open Approach (ICD-10-PCS; 2022-04-04)
PROC: BW211ZZ Computerized Tomography (CT Scan) of Abdomen and Pelvis using Low Osmolar Contrast (ICD-10-PCS; 2022-04-04)
PROC: 0DNN0ZZ Release Sigmoid Colon, Open Approach (ICD-10-PCS; principal; 2022-04-04 18:58)
PROC: 02HV33Z Insertion of Infusion Device into Superior Vena Cava, Percutaneous Approach (ICD-10-PCS; 2022-04-05)
PROC: B548ZZA Ultrasonography of Superior Vena Cava, Guidance (ICD-10-PCS; 2022-04-05)
DX: A41.9 Sepsis, unspecified organism (principal); J96.00 Acute respiratory failure, unspecified whether with hypoxia or hypercapnia; R65.21 Severe sepsis with septic shock; K56.699 Other intestinal obstruction unspecified as to partial versus complete obstruction; K57.80 Diverticulitis of intestine, part unspecified, with perforation and abscess without bleeding; K56.49 Other impaction of intestine; N32.1 Vesicointestinal fistula; I10 Essential (primary) hypertension; G47.33 Obstructive sleep apnea (adult) (pediatric); N40.0 Benign prostatic hyperplasia without lower urinary tract symptoms; K63.89 Other specified diseases of intestine; A04.9 Bacterial intestinal infection, unspecified; D75.89 Other specified diseases of blood and blood-forming organs; E66.01 Morbid (severe) obesity due to excess calories; G89.29 Other chronic pain; K21.9 Gastro-esophageal reflux disease without esophagitis; I25.10 Atherosclerotic heart disease of native coronary artery without angina pectoris; D64.9 Anemia, unspecified; Z87.891 Personal history of nicotine dependence; Z82.49 Family history of ischemic heart disease and other diseases of the circulatory system; Z82.3 Family history of stroke; Z56.0 Unemployment, unspecified; Z68.42 Body mass index [BMI] 45.0-49.9, adult; Z88.8 Allergy status to other drugs, medicaments and biological substances; Z79.82 Long term (current) use of aspirin; Z98.42 Cataract extraction status, left eye; Z98.41 Cataract extraction status, right eye
CPT/HCPCS: 36415; 36600; 71045; 74176; 74177; 80053; 81001; 82803; 82948; 83605; 83690; 83735; 84100; 84145; 84443; 84478; 85007; 85018; 85025; 85379; 85610; 85730; 87040; 87070; 87081; 87088; 93308; 94002; 94003; 94760; 97116; 97162; 97530; 99285; A4215; A4333; A4421; A4615; A4618; A4649; A5200; A6213; A6223; A6250; A6402; A6449; A6550; A7000; C1758; G0378; J0282; J1100; J1644; J1940; J2250; J2270; J2405; J2543; J2704; J2795; J3010; J3475; J3490; J7030; J7040; J7060; J7120; P9045; Q9963; Q9967

== ENCOUNTER 2023-06-17 22:29 | Observation (INO) | payer MEDICAID ==
[~2023-06-17] VITALS: Ht 175.3 cm; Wt 147.0 kg
[~2023-06-17 22:29] MED LIST changes: +ALBU18HF2 PO; -ALBU8HFA PO; -PRED20TA PO; -TAM75C PO
[2023-06-17] MEDS ORDERED: IBUP-1986 PO (22:47)
[2023-06-17] MEDS ORDERED: PRIM50TA5 (22:47)
[2023-06-17] MEDS: ondansetron/PF 4mg/2ml inj IV ONE (23:02)
[2023-06-17] MEDS: morphine 4 MG/ML inj SYRINge IV ONE (23:03)
[2023-06-17] MEDS: aspirin 325mg tablet, delayed-release (Ecotrin) PO ONE (23:04)
[2023-06-17 23:05] LABS: BASOPHILS % (AUTO) 0.6 % (0-1); EOSINOPHILS # (AUTO) 0.1 X10'3 (0-0.9); EOSINOPHILS % (AUTO) 1.4 % (0-6); HEMATOCRIT 42.9 % (42.0-52.0); HEMOGLOBIN 14.9 g/dl (14.0-17.9); LYMPHOCYTES # (AUTO) 2.5 X10'3 (1.1-4.8); LYMPHOCYTES % (AUTO) 29.4 % (21-51); MEAN CORPUSCULAR HEMOGLOBIN 35.3 PG (27.0-31.0); MEAN CORPUSCULAR HGB CONC 34.7 g/dL (33.0-36.5); MEAN CORPUSCULAR VOLUME 101.6 FL (78-98); MEAN PLATELET VOLUME 9.9 FL (7.4-10.4); MONOCYTES # (AUTO) 0.8 X10'3 (0-0.9); MONOCYTES % (AUTO) 9.3 % (2-12); NEUTROPHILS # (AUTO) 5.1 X10'3 (1.8-7.7); NEUTROPHILS % (AUTO) 59.3 % (42-75); PLATELET COUNT 144 X10'3 (140-440); RED BLOOD COUNT 4.22 X10'6 (4.70-6.10); RED CELL DISTRIBUTION WIDTH 13.9 % (11.5-14.5); WHITE BLOOD COUNT 8.6 X10'3 (4.5-11.0)
[2023-06-17] MEDS: nitroGLYCERIN 1gm ointment UD TP ONE (23:36)
[2023-06-17 23:58] LABS: ALBUMIN 2.9 G/DL (3.4-5.0); ANION GAP 11 (8-16); BLOOD UREA NITROGEN 18 MG/DL (7-18); BUN/CREATININE RATIO 12.4 (10.0-20.0); CALCIUM 8.4 MG/DL (8.5-10.1); CHLORIDE 101 MMOL/L (99-107); CREATININE 1.45 MG/DL (0.60-1.10); GLUCOSE 179 MG/DL (70-104); POTASSIUM 3.8 MMOL/L (3.5-5.1); SODIUM 139 MMOL/L (135-145); TOTAL CARBON DIOXIDE 26.9 MMOL/L (24-32); eCRCL 54 ML/MIN; eGFR 49 ML/MIN
[2023-06-18] VITALS (11 sets, daily range): BP systolic 105–141; BP diastolic 62–92; PULSE 86–123; RESP 14–24; TEMP 97.7–99; O2SAT 93–97
[2023-06-18 00:55] LABS: D-DIMER 0.56 MG/L FEU (0-0.50)
[2023-06-18] MEDS ORDERED: iohexol 350MG/ML 100ml bottle IV ONE ×2 (01:09→02:04)
[2023-06-18] MEDS ORDERED: acetaminophen 325mg tablet PO PRN ×2 (02:55)
[2023-06-18] MEDS ORDERED: morphine 2 MG/ML inj. syringe IV PRN ×2 (02:55)
[2023-06-18] MEDS ORDERED: ondansetron/PF 4mg/2ml inj IV PRN (02:55)
[2023-06-18] MEDS ORDERED: magnesium 2GM in 50ml NS 50 ML IV PRN (02:55)
[2023-06-18] MEDS ORDERED: potassium Cl 20 mEq SR tablet PO PRN ×2 (02:55)
[2023-06-18] MEDS ORDERED: potassium Cl 40MEQ/1/2NS 520ml 520 ML IV PRN (02:55)
[2023-06-18] MEDS ORDERED: magnesium hydroxide 30ml (MOM) UD suspension PO PRN (02:55)
[2023-06-18] MEDS ORDERED: magnesium 4gm in 100ml NS 100 ML IV PRN (02:55)
[2023-06-18] MEDS ORDERED: nitroGLYCERIN 0.4mg SUBLingual tab SL PRN ×2 (03:05→03:20)
[2023-06-18] MEDS ORDERED: aminophylline 250mg/10ml inj. IV PRN (03:20)
[2023-06-18] MEDS ORDERED: metoprolol tartrate 1mg/ml inj IV PRN (03:20)
[2023-06-18] MEDS: normal saline 1000ml 1,000 ML IV SCH (03:30)
[2023-06-18 07:08] LABS: CHOL/HDL RATIO 4.2 (0.00-4.99); CHOLESTEROL 180 MG/DL (0-200); HDL CHOLESTEROL 43 MG/DL (35-60); LDL CHOLESTEROL 118 MG/DL (50-100); MAGNESIUM 1.6 MG/DL (1.5-2.4); PHOSPHORUS 4.8 MG/DL (2.3-4.5); POTASSIUM 4.3 MMOL/L (3.5-5.1); THYROID STIMULATING HORMONE 2.13 ulU/ml (0.34-4.50); TRIGLYCERIDES 77 MG/DL (20-135)
[2023-06-18] MEDS: K and/or MAG REPLACEMENT MC SCH (08:00)
[2023-06-18] MEDS: predniSONE 20 mg tablet PO SCH (09:06)
[2023-06-18] MEDS: pantoprazole 40mg Tablet.DR PO SCH (09:07)
[2023-06-18] MEDS: heparin, porcine 5000 units/ml vial SQ SCH (10:15)
[2023-06-18] MEDS: albuterol 2.5 MG/3 ML nebule NEB ONE (10:16)
[2023-06-18] MEDS: regadenoson 0.4mg/5ml syringe IV PRN (13:15)
[2023-06-18] MEDS ORDERED: PANT20TA18 PO (16:01)
== END 2023-06-18 17:45 | disposition home or self-care (01) ==
LOC: ER 22:30 → ED HOLD 06-18 03:05 → PCU 3S 06-18 04:55
PROVIDERS: ADMIT Internal Medicine; ATTEND Internal Medicine
DX: R07.89 Other chest pain (principal); K21.9 Gastro-esophageal reflux disease without esophagitis; J30.2 Other seasonal allergic rhinitis; N17.9 Acute kidney failure, unspecified; E66.01 Morbid (severe) obesity due to excess calories; G89.29 Other chronic pain; K57.90 Diverticulosis of intestine, part unspecified, without perforation or abscess without bleeding; N40.0 Benign prostatic hyperplasia without lower urinary tract symptoms; I12.9 Hypertensive chronic kidney disease with stage 1 through stage 4 chronic kidney disease, or unspecified chronic kidney disease; N18.9 Chronic kidney disease, unspecified; M19.90 Unspecified osteoarthritis, unspecified site; Z68.42 Body mass index [BMI] 45.0-49.9, adult; Z95.0 Presence of cardiac pacemaker; Z88.8 Allergy status to other drugs, medicaments and biological substances; Z79.899 Other long term (current) drug therapy; Z88.6 Allergy status to analgesic agent; Z93.3 Colostomy status
CPT/HCPCS: 36415; 71045; 71275; 78452; 80048; 80061; 83036; 83735; 84100; 84132; 84443; 84484; 85025; 85379; 87081; 93005; 93017; 93306; 96372; 96374; 96375; 99285; A9500; G0378; J1644; J2270; J2405; J2785; J3490; J7030; J7512; Q9967; A6212